=== PATIENT | female | born 1950 | race African-American/Black ===

== ENCOUNTER 2017-07-09 09:35 | Inpatient (IN) | payer BC ==
[~2017-07-09 09:35] MED LIST: ASPIRIN81 MG PO; IPRAT-ALBUT 0.5-3 ML UPD; LEVAQUIN500 MG PO; NORVASC5 MG PO; PLAVIX75 MG PO; STERAPRED DS 1210 MG PO; SYMBICORT 16010.2 GM INH
[2017-07-09 10:01] LABS: BASOPHILS 0.8 % (0-2); EOSINOPHILS 2.1 % (0-7); HEMATOCRIT 40.1 % (36.0-48.0); HEMOGLOBIN 14.5 g/dL (12-16); IMMATURE GRANULOCYTES 0.3 % (0-5); LYMPHOCYTES 40.4 % (15-50); MCH 31.3 pg (26.0-34.0); MCHC 36.2 g/dL (31.0-37.0); MCV 86.4 fL (80.0-100.0); MEAN PLATELET VOLUME 9.4 fL (7.4-10.4); MONOCYTES 6.4 % (2-11); PLATELET COUNT 275 10x3/uL (130-400); RBC 4.64 10x6/uL (4.00-5.40); RDW 13.3 % (11.5-14.5); WBC 6.3 10x3/uL (4.8-10.8)
[2017-07-09 10:15] LABS: ALBUMIN 3.3 g/dL (3.4-5.0); ALKALINE PHOSPHATASE 127 U/L (46-116); ALT (SGPT) 34 U/L (10-68); BILIRUBIN - TOTAL 0.27 mg/dL (0.2-1.3); CALC OSMOLALITY 285 mosm/kg (275-300); CALCIUM 8.6 mg/dL (8.5-10.1); CARBON DIOXIDE 21.8 mmol/L (21.0-32.0); CHLORIDE - SERUM 109 mmol/L (98-107); CREATININE - SERUM 0.7 mg/dL (0.6-1.3); GLUCOSE 103 mg/dL (74-106); POTASSIUM - SERUM 3.4 mmol/L (3.5-5.1); PROTEIN - SERUM 7.2 g/dL (6.4-8.2); SODIUM 144 mmol/L (136-145); UREA NITROGEN 9 mg/dL (7-18); eGFR NON AFRICAN AMERICAN 89 mL/min (90-120)
[2017-07-09 10:26] LABS: CHOL - HDL RATIO 5.5 ratio (2.3-4.1); CHOLESTEROL, TOTAL 262 mg/dL (0-200); CKMB 2.1 U/L (0.0-3.6); CREATINE KINASE 99 UL (21-215); HDL CHOLESTEROL 48 mg/dL (32-96); TRIGLYCERIDE 428 mg/dL (30-200); TROPONIN-I 0.033 ng/mL (0.000-0.060)
[2017-07-09 11:22] LABS: APPEARANCE CLEAR (CLEAR); BILIRUBIN NEGATIVE (NEGATIVE); COLOR YELLOW (YELLOW); GLUCOSE NEGATIVE (NEGATIVE); KETONE NEGATIVE (NEGATIVE); NITRITE NEGATIVE (NEGATIVE); PROTEIN TRACE mg/dL (NEGATIVE); SPECIFIC GRAVITY 1.025 (1.005-1.020); UROBILINOGEN NORMAL (NORMAL)
[2017-07-09 11:25] LABS: EPITHELIAL CELLS 0-5 /hpf (0-5)
[2017-07-09 11:26] LABS: BACTERIA FEW /hpf (NONE SEEN); MUCUS >1+ /lpf (NONE SEEN); RED CELLS - URINE 0-5 /hpf (0-5)
[2017-07-09] MEDS ORDERED: NITROSTAT0.4 MG SL (12:18)
[2017-07-09 12:24] VITALS: BP 159/80
--- NOTE | 2017-07-09 12:29 | NUR ---
RECIEVED FROM ER. ALERT AND ORIENTED. TELEMERTY SHOWS SR 80. SL TO LEFT HAND. DENIES ANY NEEDS AT PRESENT TIME. SR UP WITH CALL LIGHT IN REACH. WILL MONITOR
[2017-07-09 12:32] VITALS: BP 159/80; BMI 24.6
[2017-07-09 14:32] LABS: CKMB 2.3 U/L (0.0-3.6); CREATINE KINASE 90 UL (21-215); TROPONIN-I 0.022 ng/mL (0.000-0.060)
--- NOTE | 2017-07-09 15:46 | NUR ---
LYING QUIETLY. DENIES ANY NEEDS. TELEMERTY SHOWS SR. WILL MONITOR
[2017-07-09 16:00] VITALS: BP 153/77
--- NOTE | 2017-07-09 17:27 | HP ---
PATIENT: MAI BALL MEDICAL RECORD: [id number] ACCOUNT: [id number] LOCATION:[address] : 52 ADMISSION DATE: 07/09/17 HISTORY AND PHYSICAL EXAMINATION REASON FOR ADMISSION: Chest pain and right flank pain. HISTORY OF PRESENT ILLNESS: The patient is a 66-year-old -[place] female with history of COPD, continues to smoke. She is followed by Dr. Concepcion for heart disease and Dr. García for COPD. She does not have a primary physician currently. She states that she has been feeling well recently, developed onset of some sharp fleeting anterior chest wall pain last night. It started about 9:00 and would come and go, lasted about 5 minutes and resolved throughout the night. She did note onset of some flank pain in the right side yesterday as well. In fact, the flank pain is worse than her chest pain. Describes it as 5/10 and sometimes 10/10 that comes and goes. She has not had any associated skin rash in that area, back injury, dysuria, hesitancy or hematuria. She has no prior history of kidney disease or lumbago. She came to the ER for these reasons and Dr. Flowers has admitted her to our service for medicine unassigned call and has talked to Dr. Kang who is certified rehabilitation counselor for Dr. Concepcion to assess for chest pain. She has had no recent exertional chest pain, increased dyspnea on exertion, or marked fatigue. PAST HISTORY: COPD, pneumonia. She has a history of remote MO. Coronary artery disease post PTCA of the RCA on 04/29/2016, nicotine use, essential hypertension, currently not treated. SURGICAL HISTORY: Tonsillectomy as a child. SOCIAL HISTORY: A half pack a day smoker currently, but has smoked for over 30 years. Ethanol occasional beer, does not have a problem with alcohol or use any illicit drugs. Socially, she works at [employer]. She is , has 2 children who are adult and not living with her. FAMILY HISTORY: Parents of old date. One brother of lung cancer. CURRENT MEDICATIONS: Some type of inhaler, she cannot name. REVIEW OF SYSTEMS: GENERAL: Denies fever, fatigue or weight loss. HEENT: No recent visual changes, but wears glasses to read. Denies hearing difficulty or sinus congestion. RESPIRATORY: She has mild exertional dyspnea all the time. No recent cough, congestion. Sharp chest pain as mentioned above, not related to position or cough. CARDIAC: No recent exertional chest pain. Other chest pain as mentioned above. GASTROINTESTINAL: No nausea, vomiting, change in stools or blood per rectum. GENITOURINARY: No dysuria or incontinence. GYNECOLOGICAL: No vaginal bleeding. She is 4. MUSCULOSKELETAL: She is having right flank pain now that it comes and goes. She has fairly severe, almost like labor pain. Denies any dysuria, hematuria, or history of stones. Denies lumbago, sciatica. ENDOCRINE: Denies polyuria, polydipsia, heat or cold intolerance. NEUROLOGIC: No history of stroke, TIA, or vascular headaches. INTEGUMENT: No rash or itching. HISTORY AND PHYSICAL [id number] MAI BALL PSYCHIATRIC: Denies depressed mood. PHYSICAL EXAMINATION: VITAL SIGNS: Height is 5 feet 1 inch, weight is 130 pounds with BMI of 24.6. Blood pressure is 198/96 initially, temperature is 97.8 Fahrenheit orally, pulse 102 and regular, respirations are 22, saturation was 97% on room air. GENERAL: In no acute distress. The pain is involved in her chest, not her flank. HEENT: Eyes are clear, wearing glasses. Oropharynx unremarkable. NECK: No bruits or masses. CHEST: Distant breath sounds without wheeze or rales. HEART: Regular rate and rhythm without murmur. CAROTIDS: No bruits noted. ABDOMEN: Soft, nontender. Her right flank is mildly tender to deep palpation over the right CVA. No rashes noted. BACK: Shows good range of motion without sciatica or limited range of motion. SLR is negative bilaterally. Gait is normal. NEUROLOGICAL: Oriented to person, place, and time. Cranial nerves intact. Gait is normal. LABORATORY DATA: Lab shows white count of 6300 with H&H of 14.5 and 40.1. Potassium was low at 3.4, anion gap of 16, BUN and creatinine are normal. Nonfasting blood sugar is 155. Magnesium is normal at 1.9. Liver functions are normal except for alkaline phosphatase of 127. ProBNP is 323. Triglycerides are high at 428, cholesterols 262. EKG shows evidence of remote MO, no acute changes. Her last CT of chest in 2014 showed atherosclerotic changes with heavy calcification in the coronary vasculature. Chest x-ray today shows cardiomegaly with prominence of central pulmonary vasculature, but no infiltrates. ASSESSMENT: 1. Atypical chest pain in a patient with known coronary artery disease. 2. Uncontrolled hypertension, noncompliant. 3. Chronic obstructive pulmonary disease with current nicotine abuse. 4. Hypokalemia. 5. Flank pain, etiology unknown. PLAN: The patient will be admitted to the medical floor for telemetry, cardiology consult. Once cardiac status is more clear, may proceed with renal stone CT protocol. She has trace pyuria and hematuria. We will strain her urine at this time. TRANSINT:[id number] Voice Confirmation ID: [id number] DOCUMENT ID: [id number] LINDSEY SNIDER MD at 1727 CC: [id number] DICTATION DATE: 07/09/17 1144 QUARRYMAN: 07/09/17 1325 ADM IN [place] [id number] [place] [address]
[2017-07-09 19:33] VITALS: BP 151/71
[2017-07-09 20:41] LABS: CKMB 2.3 U/L (0.0-3.6); CREATINE KINASE 85 UL (21-215); TROPONIN-I 0.026 ng/mL (0.000-0.060)
--- NOTE | 2017-07-09 21:24 | NUR ---
INIITAL ROUNDS COMPLETED AT 1920 HRS. PT STATED PAIN LEVEL 6/10 AT THAT TIME. EKG DONE AT 2000 HRS. ASSESSMENT COMPLETED AT THAT TIME. IV TO L HAND SL. LUNGS DIMINISHED IN BASES BILAT. SR PER CM HR 82. ROGERS. STATES PAIN TO LOWER R BACK AND ABD. MORPHINE 5MG SIVP GIVEN FOR C/O PAIN. PT CURRENTLY STATES PAIN 4/10. WILL CONTINUE TO MONITOR. SR UP X2, CALL LIGHT WITHIN REACH.
[2017-07-09 23:27] VITALS: BP 179/81
--- NOTE | 2017-07-10 00:23 | NUR ---
PT AWAKE; STATES PAIN IS ABOUT A 3/10. DECLINES BERTRAND FOR PAIN MEDS. WILL CONTINUE TO MONITOR.
--- NOTE | 2017-07-10 01:22 | NUR ---
PT RESTING WITH EYES CLOSED. RESP EVEN AND REGULAR. SR UP X2, CALL LIGHT WITHIN REACH.
--- NOTE | 2017-07-10 04:55 | NUR ---
PT HAD C/O R FLANK AND BACK PAIN. MORPHINE 5MG SIVP GIVEN. PT NOW STATES PAIN IS 6/10. SR PER CM. WILL CONTINUE TO MONITOR.
[2017-07-10 05:00] VITALS: BP 171/67
--- NOTE | 2017-07-10 06:31 | NUR ---
SR PER CM DURING SHIFT. PT DENIED ANY CP BUT HAD C/O LOWER R FLANK AND ABD PAIN. PT STATED MORPHINE CONTROLLED PAIN BETTER THAN NORCO. NEED MET; WILL CONTINUE TO MONITOR.
[2017-07-10 06:36] LABS: BASOPHILS 0.3 % (0-2); EOSINOPHILS 1.8 % (0-7); HEMATOCRIT 37.6 % (36.0-48.0); HEMOGLOBIN 13.4 g/dL (12-16); IMMATURE GRANULOCYTES 0.2 % (0-5); LYMPHOCYTES 39.5 % (15-50); MCHC 35.6 g/dL (31.0-37.0); MONOCYTES 7.1 % (2-11); NEUTROPHILS 51.1 % (40-80); PLATELET COUNT 278 10x3/uL (130-400); RBC 4.32 10x6/uL (4.00-5.40); RDW 13.4 % (11.5-14.5)
[2017-07-10 07:01] LABS: CALC OSMOLALITY 279 mosm/kg (275-300); CALCIUM 8.7 mg/dL (8.5-10.1); CARBON DIOXIDE 24.6 mmol/L (21.0-32.0); CHLORIDE - SERUM 106 mmol/L (98-107); GLUCOSE 91 mg/dL (74-106); POTASSIUM - SERUM 3.9 mmol/L (3.5-5.1); SODIUM 141 mmol/L (136-145); UREA NITROGEN 11 mg/dL (7-18)
[2017-07-10 07:02] LABS: CREATININE - SERUM 0.5 mg/dL (0.6-1.3); eGFR NON AFRICAN AMERICAN > 90 mL/min (90-120)
--- NOTE | 2017-07-10 07:56 | NUR ---
ASSESSMENT COMPLETED. C/O SOME RIGHT LOWER BACK PAIN. TELEMETRY SHOWS SR. LUNGS CLEAR. SL TO LEFT FOREARM. WILL MONITOR.
[2017-07-10 08:00] VITALS: BP 173/79
--- NOTE | 2017-07-10 10:43 | NUR ---
ROUNDING DONE, PATIENT IS UP IN ROOM. PATIENT TO COMPLAIN SLIGHTLY OF RIGHT SIDED BACK PAIN, CT OF PELVIS HAS BEEN ORDERED. ON HEART MONITOR SHOWING SR, HR 75. WILL CONTINUE TO MONITOR.
[2017-07-10 12:00] VITALS: BP 163/84
--- NOTE | 2017-07-10 12:58 | NUR ---
PT LAYING QUIETLY. AWAITING ST SCAN. NO NEEDS VOICED. TELEMERTY SHOWS SR
[2017-07-10 16:00] VITALS: BP 150/84
--- NOTE | 2017-07-10 16:05 | NUR ---
GOING TO CT FOR CT OF PELVIS PER WHEELCHAIR
[2017-07-10 20:49] VITALS: BP 163/63
--- NOTE | 2017-07-10 22:09 | NUR ---
INITIAL ROUNDS COMPLETED AT 1915 HRS. PT WITH FAMILY AT BEDSIDE. NO DISTRESS NOTED. ASSESSMENT COMPLETED AT 194 HRS. SR PER CM HR 98. VSS. IV TO L HAND SL. LUNGS CTA. PT HAD C/O R FLANK AND ABD PAIN AT 2099 HRS. MORPHINE 5MG SIVP GIVEN AT 2121 HRS. PT CURRENTLY RESTING WITH EYES CLOSED. RESP EVEN AND REGULAR. SR UP X2, CALL LIGHT WITHIN REACH.
--- NOTE | 2017-07-11 00:41 | NUR ---
PT RESTING WITH EYES CLOSED. RESP EVEN AND REGULAR. SR UP X2, CALL LIGHT WITHIN REACH.
[2017-07-11 01:18] VITALS: BP 183/82
--- NOTE | 2017-07-11 02:16 | NUR ---
PT RESTING WITH EYES CLOSED. RESP EVEN AND REGULAR. SR UP X2, CALL LIGHT WITHIN REACH.
--- NOTE | 2017-07-11 04:46 | NUR ---
MORPHINE 5MG SIVP GIVEN FOR C/O R FLANK AND ABD PAIN. WILL CONTINUE TO MONITOR.
[2017-07-11 05:25] VITALS: BP 175/84
--- NOTE | 2017-07-11 05:51 | NUR ---
VSS THROUGHOUT NIGHT. SR PER CM. PT STATED IV MORPHINE HELPED R FLANK PAIN. NEEDS MET; WILL CONTINUE TO MONITOR.
[2017-07-11 08:39] VITALS: BP 159/77
--- NOTE | 2017-07-11 09:26 | NUR ---
TELEMETRY SR. CALL LIGHT IN REACH. WILL CONT. PLAN OF CARE.
[2017-07-11 13:00] VITALS: BMI 26.0
[2017-07-11 13:37] VITALS: BP 178/90
[2017-07-11 16:04] VITALS: BP 174/78
--- NOTE | 2017-07-11 20:00 | NUR ---
PT RESTING IN BED. FAMILY X 3 IN ROOM. PT ALERT/ORIENTED. SR PER TELEMETRY. NONLABORED RESPIRATIONS ON ROOM AIR. C/O RIGHT SIDE PAIN. MEDICATED WITH MORPHINE 5MG SIVP. SEE SHIFT ASSESSMENT. CPOC.
[2017-07-11 20:59] VITALS: BP 178/80
[2017-07-12 00:30] VITALS: BP 148/64
--- NOTE | 2017-07-12 04:44 | NUR ---
PT RECIEVED MORPHINE 5MG SIVP EARLIER FOR PAIN TO RIGHT SIDE/FLANK. SHE IS NOW RESTING MORE COMFORTABLY. CPOC.
[2017-07-12 06:03] VITALS: BP 153/70
[2017-07-12] MEDS ORDERED: NORVASC5 MG PO (07:07)
[2017-07-12 08:07] VITALS: BP 144/70
[2017-07-12] MEDS ORDERED: MEDROL DOSE PACK4 MG PO (10:32)
--- NOTE | 2017-07-12 10:36 | NUR ---
Patient Name: MAI BALL Admission Status: ER Accout number: [id number] Admission Date: 07-10-2017 : 1950 Admission Diagnosis: Attending: LINDSEY SNIDER Current LOS: 2 Anticipated DC Date: 07-12-2017 Planned Disposition: Home Primary Insurance: [employer] O Discharge Planning Comments: * Is the patient Alert and Oriented? Yes 0 * How many steps to enter\exit or inside your home? 2 0 * [facility] SEEING [facility], SHE IS NOT GONE 0 * Pharmacy [facility] AT [facility] 0 * Preadmission Environment Home Alone 0 * ADLs Independent 0 * Equipment None 0 * Other Equipment NO MEDICAL EQUIPMENT PROVIDER PREFERENCE 0 * List name and contact numbers for known caregivers / representatives who currently or will assist patient after discharge: CHRISTIAN ARTEAGA, SISTER, 0 * Community resources currently utilized None 0 * Please name any agencies selected above. NONE 0 * Additional services required to return to the preadmission environment? No 0 * Can the patient safely return to the preadmission environment? Yes 0 * Has this patient been hospitalized within the prior 30 days at any hospital? No 0 CM MET WITH PT IN ROOM TO DISCUSS DISCHARGE PLANNING AND NEEDS. PT REPORTS LIVING AT HOME INDEPENDENTLY AND ALONE. PT HAS NO MEDICAL EQUIPMENT AND NO OUTSIDE SERVICES ASSISTING IN THE HOME. CM DISCUSSED AVAILABILITY OF HOME HEALTH, REHAB SERVICES AND MEDICAL EQUIPMENT. PT DENIES DISCHARGE NEEDS, REPORTS FAMILY WILL PICK HER UP FOR DISCHARGE HOME. Mail Service Coordinator: Hunter Lynch
--- NOTE | 2017-07-12 11:04 | NUR ---
DISCHARGE INSTRUCTIONS REVIEWED WITH PT. VERBAL AND WRITTEN ACKNOWLEDGEMENT RETURNED
--- NOTE | 2017-07-12 11:05 | NUR ---
IV AND TELEMETRY DCD. DC PLANS GIVEN BY RON WRIGHT. ESCORTED TO CAR BY W/C.
== END 2017-07-12 11:06 | disposition home or self-care (01) | DRG 760 ==
LOC: D.ER 09:35 → D.M2 11:35 → OBSVTIME 11:35 → D.M2 07-10 17:18
PROVIDERS: Emergency Medicine; ADMIT Family Medicine
DX: D25.9 Leiomyoma of uterus, unspecified (principal); J44.1 Chronic obstructive pulmonary disease with (acute) exacerbation; R07.89 Other chest pain; M54.30 Sciatica, unspecified side; I10 Essential (primary) hypertension; I25.10 Atherosclerotic heart disease of native coronary artery without angina pectoris; E87.6 Hypokalemia; M47.896 Other spondylosis, lumbar region; Z95.5 Presence of coronary angioplasty implant and graft; Z72.0 Tobacco use

== ENCOUNTER 2019-01-14 19:11 | Observation (INO) | payer BC ==
[2019-01-14] VITALS (7 sets, daily range): BP systolic 147–196; BP diastolic 68–91
--- NOTE | ~2019-01-14 | HEMODYNAMI ---
PATIENT:MAI BALL MEDICAL RECORD: [id number] : 54 [facility] ADMISSION DATE: 01/14/19 Generatedon:01/15/201915:40 Patient name: MAI BALL Patient #: [id number] SSN: D OB: 1950 Date of study: 01/15/2019 Page: Of Hemodynamic Procedure Report Patient Data Patient Demographics Procedure consent was obtained First Name: MAI Gender: Female Last Name: QUINN : 1950 Middle Initial: A Age: 68 year(s) Patient #: [id number] Race: Black Additional ID: [id number] Contact details Address: [address] [place] [address] State: [place]: [facility] [place] Zip code: [address] Past Medical History Allergies: No known allergies Admission Admission Data Admission Date: 01/14/2019 Admission Time: 23:26 Room #: D.2119 Height (in.): 60.98 BSA: 1.61 (m2) Height (cm.): 154.9 BMI: 25.84 (kg/m2) Weight (lbs.): 136.69 Weight (kg.): 62 Lab Results Lab Result Date: 01/15/2019 Lab Result Time: 0:00 Biochemistry Name Units Result Min Max BUN mg/dl 14 --(--*-)-- 7 18 Creatinine mg/dl 0.5 -*(----)-- 0.6 1.3 CBC Name Units Result Min Max Hematocrit % 34.2 *-(----)-- 42 54 Hemoglobin g/dl 12.2 *-(----)-- 13.5 17.5 Procedure Procedure Types Cath Procedure Diagnostic Procedure [facility] w/Coronaries Sedation Charges Moderate Sedation up to 30 minutes PCI Procedure Coronary Stent Coronary Stent Initial Procedure Description Procedure Date Procedure Date: 01/15/2019 Procedure Start Time: 15:06 Procedure End Time: 15:35 Procedure Staff Name Function Ancelmo Kang MD Performing Physician Gauri Ernst RT Monitor Elo Elmore RN Nurse Steve Flower RT Scrub Ricki Bernstein RT Monitor Procedure Data Cath Procedure Fluoroscopy Diagnostic fluoroscopy Total fluoroscopy Time: 6.1 time: 6.1 min min Diagnostic fluoroscopy Total fluoroscopy dose: 718 dose: 718 mGy mGy Contrast Material Contrast Material Type Amount (ml) Isovue 300 126 Entry Location Entry Primary Successful Side Size Upsize Upsize Entry Closure Succes sful Closure Location (Fr) 1 (Fr) 2 (Fr) Remarks Device Remarks Femoral Right 5 Fr 6 Fr Exoseal artery Short Estimated blood loss: 10 ml Diagnostic catheters Device Type Used For End Catheter Placement MULTIPACK JL 4.0 5Fr Procedure catheter MULTIPACK 3DRC 5Fr Procedure catheter MULTIPACK Pigtail 5 Fr Procedure catheter Procedure Complications No complications Procedure Medications Medication Administration Route Dosage Oxygen etCO2 Nasal cannula 2 l/min Heparin Flush Bag added to field 2 bags (1000units/500ml NS) 0.9% NaCl I.V. 100 ml/hr Lidocaine 2% added to field 20 Fentanyl I.V. 50 mcg Versed I.V. 1 mg Versed I.V. 1 mg Fentanyl I.V. 50 mcg Heparin Bolus I.V. 6500 units Plavix P.O. 600 mg Hemodynamics Rest BSA: 1.61 (m2) HGB: 12.2 (g/dl) O2 Consumption: Estimated: 160.36 (ml/min) O2 Co nsumption indexed: Estimated:99.6 (ml/min/m) Heart Rate: 87 (bpm) Pressure Samples Time Site Value (mmHg) Purpose Heart Use Rate(bpm) 15:13 LV 134/2,14 Snapshot 88 15:13 LV 177/17,29 Snapshot 91 Gradients Valve Time Site Site Mean SEP/DFP Peak To Heart Use 1 2 (mmHg) (sec/min) Peak Rate (mmHg) (bpm) Aortic 15:13 LV AO 87 Snapshots Pre Cath Intra NCS Post Cath Vital Signs Time Heart Resp SPO2 etCO2 NIBP (mmHg) Rhythm Pain Sedation Rate (ipm) (%) (mmHg) Status Level (bpm) 14:54:08 89 17 98 26.9 173/90(126) NSR 0 (11) 10(A) , No pain 14:58:28 92 16 97 29.1 169/84(119) NSR 0 (11) 10(A) , No pain 15:02:48 92 15 98 26.1 147/91(112) NSR 0 (11) 10(A) , No pain 15:07:02 93 12 96 22.4 153/88(107) NSR 0 (11) 9(A) , No pain 15:11:12 89 12 97 21.6 148/88(132) NSR 0 (11) 9(A) , No pain 15:15:24 91 13 97 23.9 156/88(139) NSR 0 (11) 9(A) , No pain 15:19:44 85 17 98 28.4 148/84(109) NSR 0 (11) 9(A) , No pain 15:23:56 91 13 98 15 151/93(132) NSR 0 (11) 9(A) , No pain 15:28:10 93 14 97 9.7 162/88(137) NSR 0 (11) 9(A) , No pain 15:32:28 91 15 98 28.4 171/92(137) NSR 0 (11) 10(A) , No pain Medications Time Medication Route Dose Verified Delivered Reason Notes Effectiveness by by 14:46:39 Oxygen etCO2 2 Ancelmo Elo Per physician Nasal l/min Jorge Luis Elmore cannula RN 14:51:35 Heparin Flush added 2 Ancelmo Elo used for Bag to bags Jorge Luis Elmore procedure (1000units/500ml field RN NS) 14:51:43 0.9% NaCl I.V. 100 Ancelmo Elo Per physician ml/hr Jorge Luis Elmore RN 14:51:52 Lidocaine 2% added 20ml Ancelmo Elo used for to vial Jorge Luis Elmore procedure field RN 14:58:31 Fentanyl I.V. 50 Ancelmo Elo for sedation mcg Jorge Luis Elmore RN 14:58:44 Versed I.V. 1 mg Ancelmo Elo for sedation Jorge Luis Elmore RN 15:04:32 Versed I.V. 1 mg Ancelmo Elo for sedation Jorge Luis Elmore RN 15:04:35 Fentanyl I.V. 50 Ancelmo Elo for sedation mcg Jorge Luis Elmore RN 15:18:01 Heparin Bolus I.V. 6500 Ancelmo Elo for verif ied units Jorge Luis Elmore anticoagulation with Dr. KYLE Kang 15:18:20 Plavix P.O. 600 Ancelmo Elo for mg Jorge Luis Elmore antiplatelet RN therapy Procedure Log Time Note 14:30:46 Signed procedure consent form obtained from patient. 14:30:48 Diagnostic Cath status Urgent 14:30:49 Time tracking: Regular hours (M-F 7:00 - 5:00) 14:30:52 Plan of Care:Hemodynamics will remain stable., Cardiac rhythm will remain stable., Comfort level will be maintained., Respiratory function will remain adequate., Patient/ family verbilizes understanding of procedure., Procedure tolerated without complication., Recovers from procedure without complications.. 14:33:00 Elo Elmore RN sent for patient. Start room use. 14:35:36 Patient Weight : 136.69 lbs 14:35:47 Patient Height : 60.98 inches 14:35:59 Patient allergic to No known allergies 14:36:26 Lab Result : Creatinine 0.5 mg/dl 14:36:26 Lab Result : BUN 14 mg/dl 14:36:26 Lab Result : Hematocrit 34.2 % 14:36:26 Lab Result : Hemoglobin 12.2 g/dl 14:40:14 Patient received from Med II to CCL 1 Alert and oriented. Tansferred to table in Supine position. 14:40:15 Warm blankets applied, and tanvi hugger turned on for patient comfort. 14:40:15 Correct patient and procedure confirmed by team. 14:40:16 ECG and BP/O2 sat monitors applied to patient. 14:46:39 Oxygen 2 l/min etCO2 Nasal cannula was administered by Elo Elmore RN; Per physician; 14:51:17 Vital chart was started 14:51:23 Baseline sample Acquired. 14:51:28 Rhythm: sinus rhythm 14:51:29 Full Disclosure recording started 14:51:35 Heparin Flush Bag (1000units/500ml NS) 2 bags added to field was administered by Elo Elmore RN; used for procedure; 14:51:43 0.9% NaCl 100 ml/hr I.V. was administered by Elo Elmore RN; Per physician; 14:51:52 Lidocaine 2% 20ml vial added to field was administered by Elo Elmore RN; used for procedure; 14:54:22 H&P Date Dictated: 01/15/2019 Within 30 days and on chart.. 14:54:23 Pre-procedure instructions explained to patient. 14:54:24 Pre-op teaching completed and patient verbalized understanding. 14:54:26 Family in patients room. 14:54:27 Patient NPO since Midnight. 14:54:28 Is the patient allergic to Iodine/contrast media? No. 14:54:31 Is patient on blood thinner?No 14:54:33 Patient diabetic? No. 14:54:35 Previous problem with sedation/anesthesia? No ? 14:54:36 Snore? No 14:54:37 Sleep apnea? No 14:54:39 Deviated septum? No 14:54:39 Opens mouth fully? Yes 14:54:40 Sticks out tongue? Yes 14:54:42 Airway obstruction? No ? 14:54:44 Dentures? No ? 14:54:46 Pre procedure: right dorsailis pedis pulse 1+ Palpable, but thready & weak; easily obliterated 14:54:53 Patient pain scale 0/10 ?. 14:54:57 IV patent on arrival in left forearm with 0.9% NaCl at [facility]. 14:55:01 Lab results completed and on chart. 14:55:04 Right groin area was prepped with chlora-prep and draped in sterile fashion 14:55:05 Alarms reviewed by R. N. 14:55:06 Sharps counted by scrub and verified by R.N. 14:56:37 Use device set Femoral Dx 14:56:40 Tegaderm 4 x 4 (1626W) opened to sterile field. 14:56:41 ACIST Manifold (08801) opened to sterile field. 14:56:42 ACIST Hand Control (42496) opened to sterile field. 14:56:44 ACIST Syringe (41896) opened to sterile field. 14:56:44 Bag Decanter (2002S) opened to sterile field. 14:56:44 Medline Cath Pack ([id number]) opened to sterile field. 14:56:45 DIAGNOSTIC WIRE .035 260cm J wire (583244) opened to sterile field. 14:56:46 DIAGNOSTIC Multipack 5Fr catheter set ([id number]) opened to sterile field. 14:56:47 SHEATH 5FR Brandon (GVL601) opened to sterile field. 14:57:05 --------ALL STOP TIME OUT------ 14:57: Final Timeout: patient, procedure, and site verified with staff and physician. All members of the team are in agreement. 14:57: Right groin site verified by team. 14:57:13 Maximum allowable Isovue 370 dose 300ml. Physician notified. (300ml for normal creatinines. For patients with creatinine of 1.7 or higher multiply weight(kg) x 5 divided by creatinine.) 14:57:27 Fire Safety Assessment: A--An alcohol-based skin anteseptic being used preoperatively., C--Open oxygen or nitrous oxide is being used., D--An ESU, laser, or fiber-optic light is being used. 14:57:37 Physical assessment completed. ASA score P 2 - A patient with mild systemic disease as per Ancelmo Kang MD. 14:57:40 Sedation plan: IV Moderate Sedation Medication:Versed, Fentanyl 14:58:31 Fentanyl 50 mcg I.V. was administered by Elo Elmore RN; for sedation; 14:58:44 Versed 1 mg I.V. was administered by Elo Elmore RN; for sedation; 15:04:03 Zero performed for pressure channel P1 15:04:32 Versed 1 mg I.V. was administered by Elo Elmore RN; for sedation; 15:04:35 Fentanyl 50 mcg I.V. was administered by Elo Elmore RN; for sedation; 15:05:43 Zero performed for pressure channel P1 15:05:46 Procedure started. 15:06:09 Local anesthetic to right femoral artery with Lidocaine 2% by Ancelmo Kang MD.INITIAL ACCESS ONLY 15:06:15 Zero performed for pressure channel P1 15:07:15 A 5 Fr sheath was inserted into the Right Femoral artery 15:07:57 A MULTIPACK JL 4.0 5Fr catheter was advanced over the wire and used for Procedure. 15:09:33 LCA angiography performed. 15:09:40 Catheter exchanged over wire. 15:10:24 A MULTIPACK 3DRC 5Fr catheter was advanced over the wire and used for Procedure. 15:11:24 RCA angiography performed. 15:11:27 Catheter exchanged over wire. 15:11:34 A MULTIPACK Pigtail 5 Fr catheter was advanced over the wire and used for Procedure. 15:12:30 LV gram done using MUNROE 15:12:32 Injector settings: Ml/sec: 10, Volume: 20, 15:13:20 LV hemodynamics recorded. 15:13:43 EF : 60 % 15:14:07 SHEATH 6FR Brandon (NZR809) opened to sterile field. 15:14:08 BMW 300cm Straight [place] 2 wire ([id number]) opened to sterile field. 15:14:08 INFLATOR Merit BasixCompak (MO1629) opened to sterile field. 15:14:08 TUBING High Pressure Extension Tubing (Jorge Luis) ([id number]) opened to sterile field. 15:14:46 Sheath upsized to a 6 Fr Short. 15:16:02 GUIDE 6FR JR 4.0 catheter ([id number]) opened to sterile field. 15:16:47 6 Fr JR 4 guide catheter was inserted over the wire 15:18:01 Heparin Bolus 6500 units I.V. was administered by Elo Elmore RN; for anticoagulation; verified with Dr. Kang 15:18:05 BMW 300 wire advanced. 15:18:20 Plavix 600 mg P.O. was administered by Elo Elmore RN; for antiplatelet therapy; 15:18:49 Wire advanced across lesion. 15:21:04 Inflate balloon Inflation number: 1 A EUPHORA 2.0 x 20 Balloon ([id number]) was prepped and advanced across the Mid RCA, then inflated to 15 MAYA for 0:10 (min:sec). 15:22:02 Inflation number: 2 The EUPHORA 2.0 x 20 Balloon ([id number]) was reinflated across the Mid RCA, to 15 MAYA for 0:10 (min:sec). 15:23:47 Inflation number: 3 The EUPHORA 2.0 x 20 Balloon ([id number]) was reinflated across the Mid RCA, to 16 MAYA for 0:10 (min:sec). 15:24:50 Balloon removed over the wire. 15:29:12 Place stent Inflation Number: 1 A COBRA RX 2.5 X 12 Stent was prepped and advanced across the Prox RCA. The stent was deployed at 14 MAYA for 0:10 (min:sec). 15:29:58 Stent catheter was removed intact over wire. 15:30:01 Wire removed. 15:30:12 Guide catheter removed. 15:31:06 EXOSEAL 6Fr (EX600) opened to sterile field. 15:31:38 Sheath removed intact; hemostasis achieved with Exoseal to the Right Femoral artery. 15:31:41 Procedure ended.(Physican Out) 15:33:58 Fluoroscopy time 06.10 minutes. 15:34:02 Flurop Dose total: 718 15:34:02 Fluoroscopy dose: 718 mGy 15:34:06 Contrast amount:Isovue 300 126ml. 15:34:08 Sharps counted by scrub and verified by R.N. 15:34:11 Post-op/insertion site Right Femoral artery dressed using a 4 x 4 and Tegaderm. 15:34:13 Post-procedure physical assessment completed. ASA score P 2 - A patient with mild systemic disease as per Ancelmo Kang MD. 15:34:16 Post procedure rhythm: sinus rhythm 15:34:18 Estimated blood loss: 10 ml 15:34:19 Post procedure instruction explained to patient.Patient verbalizes understanding. 15:34:20 Patient needs reinforcement of post procedure teaching. 15:34:43 Procedure type changed to Cath procedure, Diagnostic procedure, LHC, LHC w/Coronaries, Sedation Charges, Moderate Sedation up to 30 minutes, PCI procedure, Coronary Stent, Coronary Stent Initial 15:35:43 Procedure and supply charges have been captured, reviewed, submitted and are correct. 15:35:46 Procedure Complication : No complications 15:35:47 Vital chart was stopped 15:35:50 See physician's report for complete and final results. 15:35:53 Report given to [facility]. 15:35:56 Patient transfered to [facility] with Bed. 15:35:58 Procedure ended. 15:35:58 Full Disclosure recording stopped 15:36:03 End room use (Document Last) Intervention Summary Intervention Notes Time ActionType Lesion and Equipment Action# Pressure Duration Attributes Used 15:21:04 Inflate Mid RCA EUPHORA 1 15 00:10 balloon 2.0 x 20 Balloon ([id number]) 15:22:02 Reinflate Mid RCA EUPHORA 2 15 00:10 balloon 2.0 x 20 Balloon ([id number]) 15:23:47 Reinflate Mid RCA EUPHORA 3 16 00:10 balloon 2.0 x 20 Balloon ([id number]) 15:29:12 Place stent Prox RCA COBRA RX 1 14 00:10 2.5 X 12 Stent Device Usage Item Name Manufacture Quantity Catalog Hospital Part Current Minimal Lot# / Number Charge Number Stock Stock Serial# Code Tegaderm 4 x 4 3M 1 1626W 636753 770572 165323 5 (1626W) ACIST Manifold Acist 1 55753 679693 930044 994788 5 (22775) Medical Systems Inc ACIST Hand Acist 1 74200 650909 420256 829739 5 Control Medical (32895) Systems Inc ACIST Syringe Acist 1 09449 833194 774491 907819 20 (31050) Medical Systems Wanxue Education Bag Decanter Microtek 1 2001S 958261 47729 899264 5 (2001S) Medical Inc. Medline Cath Medline 1 [id number] 164606 79011 705796 5 Pack ([id number]) DIAGNOSTIC [facility] 1 175952 859341 668946 247007 30 WIRE .035 260cm J wire (068774) DIAGNOSTIC Cardinal 1 WQ1597 926943 76613 609758 30 Multipack 5Fr Health catheter set (HY2792) SHEATH 5FR Terumo 1 ESQ550 398985 717363 683603 5 Brandon (WRI032) MULTIPACK JL Cardinal 1 575952 5 4.0 5Fr Health catheter MULTIPACK 3DRC Cardinal 1 723175 5 5Fr catheter Health MULTIPACK Cardinal 1 987545 5 Pigtail 5 Fr Health catheter SHEATH 6FR Terumo 1 EOP365 870568 821450 023180 40 Brandon (BTP922) BMW 300cm Dominguez 1 3663328 303416 423788 611574 5 Straight Vascular [place] 2 wire (2611218) INFLATOR Merit Merit 1 ZD6965 690854 910816 810632 15 BasixDocurated Medical (TQ8111) TUBING High Merit 1 [id number] 481098 29166 316624 10 Pressure Medical Extension Tubing (Kang) (XT6744L) GUIDE 6FR JR Medtronic 1 [id number] 715574 00839 092436 1 4.0 catheter (BH9ED63) EUPHORA 2.0 x Medtronic 1 [id number] 118193 997112 205449 5 [id number] 20 Balloon ([id number]) COBRA RX 2.5 X Celonova 1 127154 451533531 75334132 8 0 [id number] 12 stent Biosciences () EXOSEAL 6Fr Cardinal 1 EX600 458321 264217 167538 10 (EX600) Health Signature Audit [place] Stage Time Signature Unsigned Intra-Procedure 01/15/2019 Gauri Ernst 3:40:20 PM RT(R) Signatures Monitor : Gauri Ernst Signature : RT Date : Time : Monitor : Ricki Bernstein RT Signature : Date : Time : [place] [id number] [place] [address]
[~2019-01-14 19:11] MED LIST changes: +MEDROL DOSE PACK4 MG PO; +NITROSTAT0.4 MG SL
--- NOTE | 2019-01-14 19:57 | NUR ---
NTG X 3 GIVEN WITH SOME RELIEF IN CHEST PAIN FROM 05/15 TO 04/14. BP IMPROVED SEE VITALS.
[2019-01-14 20:25] LABS: BASOPHILS 0.3 % (0-2); EOSINOPHILS 1.6 % (0-7); HEMATOCRIT 35.7 % (36.0-48.0); IMMATURE GRANULOCYTES 0.2 % (0-5); LYMPHOCYTES 38.1 % (15-50); MCH 31.1 pg (26.0-34.0); MCHC 36.4 g/dL (31.0-37.0); MCV 85.4 fL (80.0-100.0); MEAN PLATELET VOLUME 9.1 fL (7.4-10.4); NEUTROPHILS 53.8 % (40-80); PLATELET COUNT 273 10x3/uL (130-400); RBC 4.18 10x6/uL (4.00-5.40); RDW 13.4 % (11.5-14.5); WBC 9.1 10x3/uL (4.8-10.8)
[2019-01-14 20:36] LABS: APTT 24.7 SECONDS (22.8-39.4); INR 0.98 (0.85-1.17); PROTIME 12.5 SECONDS (11.6-15.0)
[2019-01-14 20:37] LABS: D-DIMER-QUANTITATIVE < 0.27 ug/mLFEU (0.20-0.54)
[2019-01-14 20:47] LABS: ALBUMIN 3.4 g/dL (3.4-5.0); ALKALINE PHOSPHATASE 103 U/L (46-116); ALT (SGPT) 26 U/L (10-68); BILIRUBIN - TOTAL 0.22 mg/dL (0.2-1.3); CALC OSMOLALITY 286 mosm/kg (275-300); CALCIUM 8.6 mg/dL (8.5-10.1); CARBON DIOXIDE 21.6 mmol/L (21.0-32.0); CHLORIDE - SERUM 109 mmol/L (98-107); CREATININE - SERUM 0.6 mg/dL (0.6-1.3); GLUCOSE 131 mg/dL (74-106); POTASSIUM - SERUM 3.3 mmol/L (3.5-5.1); SODIUM 142 mmol/L (136-145); UREA NITROGEN 17 mg/dL (7-18); eGFR NON AFRICAN AMERICAN > 90 mL/min (90-120)
[2019-01-14 20:52] LABS: CKMB 2.5 U/L (0.0-3.6); CREATINE KINASE 96 UL (21-215); MAGNESIUM - SERUM 2.1 mg/dL (1.8-2.4); TROPONIN-I 0.019 ng/mL (0.000-0.060)
--- NOTE | 2019-01-15 00:45 | NUR ---
KENTON LEGGETTY TO PATIENT.
--- NOTE | 2019-01-15 01:29 | NUR ---
RECEIVED VIA WHEELCHAIR FROM ER, A&OX4, HISTORY AND MEDS COMPLETE, IV-20G. LFA, BED IS LOW, SRX2, CALL LIGHT IN REACH, WILL CONTINUE PLAN OF CARE
--- NOTE | 2019-01-15 02:04 | NUR ---
ADMISSION ASSESSMENT COMPLETED. PT RESTING IN BED WITH NO C/O. ALERT/ORIENTED. PIV SALINE LOCKED TO LFA. PLAN OF CARE INITIATED.
[2019-01-15 02:18] VITALS: BMI 25.0
[2019-01-15 04:23] VITALS: BP 184/75
[2019-01-15 05:04] LABS: BASOPHILS 0.3 % (0-2); EOSINOPHILS 1.9 % (0-7); HEMATOCRIT 34.2 % (36.0-48.0); HEMOGLOBIN 12.2 g/dL (12-16); IMMATURE GRANULOCYTES 0.2 % (0-5); LYMPHOCYTES 36.8 % (15-50); MCH 30.6 pg (26.0-34.0); MCHC 35.7 g/dL (31.0-37.0); MCV 85.7 fL (80.0-100.0); MEAN PLATELET VOLUME 9.8 fL (7.4-10.4); MONOCYTES 8.6 % (2-11); NEUTROPHILS 52.2 % (40-80); PLATELET COUNT 273 10x3/uL (130-400); RBC 3.99 10x6/uL (4.00-5.40); RDW 13.3 % (11.5-14.5); WBC 8.6 10x3/uL (4.8-10.8)
[2019-01-15 05:39] LABS: CALC OSMOLALITY 278 mosm/kg (275-300); CALCIUM 8.7 mg/dL (8.5-10.1); CARBON DIOXIDE 23.8 mmol/L (21.0-32.0); CHLORIDE - SERUM 107 mmol/L (98-107); CKMB 2.5 U/L (0.0-3.6); CREATINE KINASE 86 UL (21-215); CREATININE - SERUM 0.5 mg/dL (0.6-1.3); GLUCOSE 97 mg/dL (74-106); POTASSIUM - SERUM 3.7 mmol/L (3.5-5.1); SODIUM 139 mmol/L (136-145); TROPONIN-I 0.034 ng/mL (0.000-0.060); UREA NITROGEN 14 mg/dL (7-18); eGFR NON AFRICAN AMERICAN > 90 mL/min (90-120)
--- NOTE | 2019-01-15 07:15 | NUR ---
ASSESSMENT COMPLETED. ALERT AND ORIENTED. UP FOR BATH. DENIES ANY NEEDS. TELEMERTY SHOWS SR. LEFT FA SL. NPO AFTER BREAKFAST FOR CATH. WILL MONITOR SR UP WITH CALL LIGHT IN REACH
[2019-01-15 08:08] VITALS: BP 158/77
[2019-01-15 11:57] VITALS: BP 162/79
--- NOTE | 2019-01-15 12:42 | NUR ---
I have reviewed this patient and I concur with the Shift Assessment completed by the Licensed Practical Nurse today this shift.
--- NOTE | 2019-01-15 15:50 | NUR ---
BACKKevin FROM LABOR DELIVERY RN. RRRRRRIGHT GROIN SOFT WITH DRSG DRY AND INTACT, PPP, TRYING TO SET UP. INSTRUCTIONS GIVEN TO PATIENT ABOUT STAYING FLAT. STATES SHE KNOWS WHAT SHE CAN DO. TUMS GIVEN FOR HEART BURN. STATES BURING RELIEVED.
--- NOTE | 2019-01-15 17:25 | NUR ---
REFUSES TO LAY STILL. WANTS UP TO EAT. I OFERED TO FEED HER AND SHE REFUSED. RIGHT GROIN SOFT WITH DRSG DRY AND INTACT. WILL MONITOR
--- NOTE | 2019-01-15 18:07 | NUR ---
PT GOT UP AND HAD IV UNHOOKED AND BLEEDING RIGHT GROIN DRSG DRY AND INTACT. PUT PT BACK TO BED AND TALKED TO HER ABOUT STAYING IN BED AND NOT SITTING UP.
--- NOTE | 2019-01-15 19:25 | NUR ---
ASSESSMENT COMPLETE. PT A&O. RESPERATIONS EVEN ON RA. IV TO LEFT ARM SL, SITE CLEAN AND DRY. DRSG TO RIGHT GROIN C/D/I. NO SWELLING, BLEEDING OR HEMATOMA NOTED. RIGHT LEG WARM TO TOUCH, PEDAL PULSES PRESENT. PT DENIES PAIN OR NEEDS, BED LOW, CL IN REACH.
--- NOTE | 2019-01-15 20:56 | NUR ---
HS MEDS GIVEN WITH FRESH ICE WATER. PT DENIES PAIN OR NEEDS.
[2019-01-15 21:25] VITALS: BP 160/66
[2019-01-16 01:56] VITALS: BP 160/71
--- NOTE | 2019-01-16 05:03 | NUR ---
I have reviewed this patient and I concur with the Shift Assessment completed by the Licensed Practical Nurse today this shift.
[2019-01-16 06:22] LABS: BASOPHILS 0.4 % (0-2); EOSINOPHILS 2.9 % (0-7); HEMATOCRIT 35.2 % (36.0-48.0); HEMOGLOBIN 12.7 g/dL (12-16); IMMATURE GRANULOCYTES 0.3 % (0-5); LYMPHOCYTES 32.3 % (15-50); MCH 30.8 pg (26.0-34.0); MCHC 36.1 g/dL (31.0-37.0); MCV 85.2 fL (80.0-100.0); MEAN PLATELET VOLUME 9.5 fL (7.4-10.4); MONOCYTES 8.8 % (2-11); NEUTROPHILS 55.3 % (40-80); PLATELET COUNT 261 10x3/uL (130-400); RBC 4.13 10x6/uL (4.00-5.40); RDW 13.4 % (11.5-14.5); WBC 7.2 10x3/uL (4.8-10.8)
[2019-01-16 06:23] VITALS: BP 166/71
[2019-01-16 06:33] LABS: CALC OSMOLALITY 277 mosm/kg (275-300); CALCIUM 8.4 mg/dL (8.5-10.1); CARBON DIOXIDE 22.4 mmol/L (21.0-32.0); CHLORIDE - SERUM 107 mmol/L (98-107); CREATININE - SERUM 0.5 mg/dL (0.6-1.3); GLUCOSE 88 mg/dL (74-106); POTASSIUM - SERUM 3.9 mmol/L (3.5-5.1); SODIUM 140 mmol/L (136-145); UREA NITROGEN 13 mg/dL (7-18); eGFR NON AFRICAN AMERICAN > 90 mL/min (90-120)
--- NOTE | 2019-01-16 07:41 | NUR ---
ASSESSMENT COMPLETED. ALERT AND ORIENTED.TELEMERTY SHOWS ST 101.RIGHT GROIN SOFT WITH DRSG DRY AND INTACT. SR UP WITH CALL LIGHT IN REAC
[2019-01-16 08:00] VITALS: BP 167/76
[2019-01-16] MEDS ORDERED: PLAVIX75 MG PO (10:20)
[2019-01-16] MEDS ORDERED: NORVASC5 MG PO (10:20)
[2019-01-16] MEDS ORDERED: ASPIRIN325 MG PO (10:21)
--- NOTE | 2019-01-16 12:45 | NUR ---
PT DISCHARGED. INSTRUCTIONS GIVEN TO PT. IV DCD WITH TIP INTACT. AWAITIN TRANSPORTATION
--- NOTE | 2019-01-16 13:18 | NUR ---
I have reviewed this patient and I concur with the Shift Assessment completed by the Licensed Practical Nurse today this shift.
--- NOTE | 2019-01-17 09:34 | MORECARE ---
CASE MANAGEMENT DISCHARGE SUMMARY PATIENT: MAI BALL UNIT: [id number] ADM DATE: 01/14/19 AGE: 68 : 52 SEX: F ROOM/BED: D.8650 AUTHOR: TESHA VINES PHYSICIAN: REFERRING PHYSICIAN: RANGEL ORELLANA MD DATE OF SERVICE: 01/17/19 Discharge Plan Patient Name: MAI BALL Facility: [facility]:[place] : 1950 Planned Disposition: Home Anticipated Discharge Date: 01/16/19 Discharge Date: 01/16/2019 Expected LOS: 2 Initial Reviewer: [email or web address] Initial Review Date: 01/17/2019 Generated: 01/17/19 10:34 am Patient Name: MAI BALL Page 37792 at 0934 All edits/amendments must be made on the electronic document DICTATION DATE: 01/17/19933 PEANUT GRADER: RANDOLPH 01/17/19933 RPT#: [id number] DC DATE:01/16/19 STATUS: DIS IN [facility] [address] [place] [address] END OF REPORT
== END 2019-01-16 13:20 | disposition home or self-care (01) ==
LOC: D.ER 19:11 → OBSVTIME 23:26 → D.M2 23:26
PROVIDERS: Family Medicine; ADMIT Internal Medicine Nephrology; ATTEND Internal Medicine Nephrology
DX: I25.110 Atherosclerotic heart disease of native coronary artery with unstable angina pectoris (principal)

== ENCOUNTER → 2019-04-09 13:41 | Outpatient (CLI) | payer BC ==
[~2019-04-09 13:41] MED LIST changes: +ASPIRIN325 MG PO
== END | disposition home or self-care (01) ==
LOC: D.RT 13:41
PROVIDERS: ATTEND Internal Medicine Pulmonary Disease
DX: J44.9 Chronic obstructive pulmonary disease, unspecified (principal)

== ENCOUNTER 2019-08-24 05:00 | Day surgery (SDC) | payer BC ==
[2019-08-23 10:19] LABS: HEMATOCRIT 36.4 % (36.0-48.0); HEMOGLOBIN 12.8 g/dL (12-16); MCH 29.6 pg (26.0-34.0); MCHC 35.2 g/dL (31.0-37.0); MCV 84.1 fL (80.0-100.0); MEAN PLATELET VOLUME 8.7 fL (7.4-10.4); RBC 4.33 10x6/uL (4.00-5.40); RDW 15.1 % (11.5-14.5)
[~2019-08-24] VITALS: Ht 154.9 cm; Wt 57.2 kg
[~2019-08-24 05:00] MED LIST changes: +BREO ELLIPTA 21 EACH; +NITROSTAT0.3 MG SL; +PREDNISONE1 MG PO; +TOPROL XL25 MG PO
[2019-08-24 06:09] VITALS: BP 123/64; Ht 154.9 cm; Wt 57.2 kg
[2019-08-24] MEDS ORDERED: HYDROCODON-ACE1 EAC7 PO (08:09)
[2019-08-24] MEDS ORDERED: DURICEF500 MG PO (08:09)
--- NOTE | 2019-08-30 07:19 | OP ---
PATIENT NAME: MAI BALL MEDICAL RECORD: [id number] :[birth year] LOCATION:[facility] ADMISSION DATE: SURGEON: CHOLO LIVINGSTON DO DATE OF OPERATION: 08/24/2019 PROCEDURE PERFORMED: Right endoscopic carpal tunnel release and right trigger thumb release or A1 alireza release of the thumb. PREOPERATIVE DIAGNOSES: Right carpal tunnel syndrome and trigger thumb of the right hand. POSTOPERATIVE DIAGNOSES: Right carpal tunnel syndrome and trigger thumb of the right hand. INDICATIONS: Ms. Ball is a 68-year-old female who has had her thumb stuck and having to unlock it herself. She was tired of dealing with the pain. She also got a nerve conduction study and is having pain and numbness in the median nerve distribution and she was tired dealing with that, had a nerve conduction study that showed a positive carpal tunnel compression in the median nerve at the wrist. I informed her of the risks include damage to the median nerve, continued numbness, pain should improve, but she may have continued numbness as well as damage to nerves, around the thumb due to the close proximity to the A1 alireza and the nerve of the thumb infection, bleeding and need for further surgery and she signed the consent. SURGEON: Cholo Livingston DO SECOND BAKER: I was assisted by Lencho Blveins, certified surgical ortho assistant. He assisted with closing and retraction. DESCRIPTION OF PROCEDURE: The patient was taken to the operative suite, given a gram of Ancef, laid in the supine position, given general anesthetic and LMA was placed. The right upper extremity was then prepped and draped in sterile fashion. A timeout was performed, everyone was in agreeance with the correct side, site, patient and procedure. The right upper extremity was then exsanguinated with an Esmarch and tourniquet was inflated to 250 mmHg and it was up for 22 minutes. Incision was then marked out over the wrist crease and centered over the palmaris longus tendon and incision was made through the skin with 15 blade scalpel. Then, blunt dissection was made with Ragnell down to the carpal tunnel and the forearm fascia was . Forearm fascia was then released from distal to proximal under direct visualization and then the dilators were put through in the carpal tunnel and the sheath was brought in and then the camera was brought in. There was a very nice view of the transverse carpal ligament. The probe and rasp were brought in to ensure there was no transligamentous nerve and there was not either one felt or seen. The blade was then brought in and raised up and transected through the transverse carpal ligament. Getting good release, fat herniated down into the carpal tunnel. Then, this was all removed with a pickup and a Ragnell were used as well as scissors to ensure there was complete release of the transverse carpal ligament with direct loupe visualization. Attention was then drawn to the trigger thumb. Incision was made over the A1 alireza and with a 15-blade scalpel just through the skin, blunt dissection was made with a Ragnell down to the A1 alireza. It was then visualized and released and the tendon was seen to be somewhat frayed on the thumb, but this was pulled out through the incision and pulled out very easily and did not click or catch as well as we tested motion with the thumb. OPERATIVE REPORT [id number] MAI BALL The tourniquet was then let down. The sites were injected with 0.25% Marcaine with epinephrine, approximately 4 mL in the thumb and then 6 mL around the carpal tunnel site, it was then closed the thumb with horizontal mattress 5-0 Monocryl and the wrist at the carpal tunnel in an inverted interrupted. Steri-Strips were placed on each. Adaptic, 4 x 4's, Kerlix, and Coban was lightly wrapped on the patient's hand. She was awakened and taken to recovery in stable condition. ESTIMATED BLOOD LOSS: Minimal. COMPLICATIONS: None. TRANSINT:[id number] Voice Confirmation ID: [id number] DOCUMENT ID: [id number] CHOLO LIVINGSTON DO at 0719 CC: [id number] DICTATION DATE: 08/24/19813 [employer] DRILLING MACHINE OPERATOR: 08/24/19 1159 [facility] 08/24/19 [place] [address] [place] [address]
== END 2019-08-24 09:55 | disposition home or self-care (01) ==
LOC: D.OPS 05:00 → D.PAN 07:00 → D.OPS 09:55
PROVIDERS: Anesthesiology; ATTEND Orthopaedic Surgery
DX: G56.01 Carpal tunnel syndrome, right upper limb (principal); M65.311 Trigger thumb, right thumb; J44.9 Chronic obstructive pulmonary disease, unspecified; Z72.0 Tobacco use; I50.9 Heart failure, unspecified; J40 Bronchitis, not specified as acute or chronic; Q67.5 Congenital deformity of spine; I25.10 Atherosclerotic heart disease of native coronary artery without angina pectoris

== ENCOUNTER → 2019-09-24 19:35 | Outpatient (CLI) | payer BC ==
[2019-08-24 06:09] VITALS: BMI 23.8
[~2019-09-24 19:35] MED LIST changes: +DURICEF500 MG PO; +HYDROCODON-ACE1 EAC7 PO; +SMZ-TMP DS TABL1 TAB PO
== END | disposition home or self-care (01) ==
LOC: D.LABREF 19:35
PROVIDERS: ATTEND Orthopaedic Surgery
DX: L02.511 Cutaneous abscess of right hand (principal)

== ENCOUNTER 2019-09-25 05:08 | Inpatient (IN) | payer BC ==
--- NOTE | 2019-09-24 16:56 | NUR ---
EVELIA NOTE: PAU AT DR. JIMENEZ'S OFFICE NOTIFIED PATIENT CURRENTLY TAKES PLAVIX 75MG DAILY WITH LAST DOSE TAKEN 09/23/2019. STATES SHE WILL INFORM BASILIO DIAZ.
[2019-09-25] VITALS (7 sets, daily range): BP systolic 132–160; BP diastolic 54–96; BMI 23.8
[~2019-09-25] VITALS: Ht 154.9 cm; Wt 57.2 kg
[~2019-09-25 05:08] MED LIST changes: -SMZ-TMP DS TABL1 TAB PO
[2019-09-25 06:29] LABS: CALC OSMOLALITY 283 mosm/kg (275-300); CALCIUM 8.9 mg/dL (8.5-10.1); CARBON DIOXIDE 19.9 mmol/L (21.0-32.0); CHLORIDE - SERUM 108 mmol/L (98-107); CREATININE - SERUM 0.5 mg/dL (0.6-1.3); GLUCOSE 103 mg/dL (74-106); POTASSIUM - SERUM 4.1 mmol/L (3.5-5.1); SODIUM 143 mmol/L (136-145); UREA NITROGEN 11 mg/dL (7-18); eGFR NON AFRICAN AMERICAN > 90 mL/min (90-120)
[2019-09-25 07:00] LABS: BASOPHILS 0.5 % (0-2); EOSINOPHILS 4.3 % (0-7); HEMATOCRIT 34.6 % (36.0-48.0); HEMOGLOBIN 11.6 g/dL (12-16); IMMATURE GRANULOCYTES 0.4 % (0-5); LYMPHOCYTES 34.3 % (15-50); MCH 28.4 pg (26.0-34.0); MCHC 33.5 g/dL (31.0-37.0); MCV 84.8 fL (80.0-100.0); MEAN PLATELET VOLUME 9.4 fL (7.4-10.4); MONOCYTES 10.2 % (2-11); NEUTROPHILS 50.3 % (40-80); RBC 4.08 10x6/uL (4.00-5.40); RDW 15.1 % (11.5-14.5); WBC 7.9 10x3/uL (4.8-10.8)
[2019-09-25 07:23] LABS: PLATELET COUNT 145 10x3/uL (130-400)
--- NOTE | 2019-09-25 09:38 | NUR ---
RECEIVED PT FROM RECOVERY. PT IS AAO AND UP WITH ASSIST. RIGHT ARM IN SLING AND DRESSING ON RIGHT HAND C/D/I. VSS AND WNL. PT IS LYING SEMI FOWLERS. CALL LIGHT W/I REACH. WILL CTM. QUICKSTART, HISTORY, AND MED REQ COMPLETE.
--- NOTE | 2019-09-25 20:10 | NUR ---
SITTING UP IN BED. ALERT AND ORIENTED X4. NASAL CONGESTION NOTED WITH OCC NONPROD COUGH. RESP EVEN AND NONLABORED. CHRISTINA WRAP NOTED TO RT HAND. C/O PAIN RATING 10 ON PAIN SCALE. NOT TIME FOR PERCOCET YET. STATES SHE WILL WAIT FOR IT. 1/2 NS @ 50 MLHR INFUSING IN LT WRIST WITHOUT DIFF. AMBULATORY. SR ELEVATED X2. CL IN REACH.
--- NOTE | 2019-09-25 22:30 | NUR ---
MEDICATED WITH PERCOCET ORDERED FOR C/O PAIN IN RT HAND. CL IN REACH.
[2019-09-26 01:14] VITALS: BP 148/62
--- NOTE | 2019-09-26 03:41 | NUR ---
RESTING IN BED WITH EYES CLOSED. RESP EVEN AND NONLABORED. NO DISTRESS. CL IN REACH.
--- NOTE | 2019-09-26 04:30 | NUR ---
RESTING WITH EYES CLOSED. RESP EVEN AND NONLABORED. NO DISTRESS. CL IN REACH.
[2019-09-26 06:06] VITALS: BP 126/71
[2019-09-26 06:34] LABS: MCHC 34.3 g/dL (31.0-37.0); MEAN PLATELET VOLUME 8.7 fL (7.4-10.4); RBC 3.28 10x6/uL (4.00-5.40); RDW 14.9 % (11.5-14.5); WBC 7.1 10x3/uL (4.8-10.8)
[2019-09-26 06:45] LABS: HEMATOCRIT 26.8 % (36.0-48.0); HEMOGLOBIN 9.2 g/dL (12-16); MCV 81.7 fL (80.0-100.0)
[2019-09-26 06:46] LABS: CALC OSMOLALITY 278 mosm/kg (275-300); CALCIUM 7.7 mg/dL (8.5-10.1); CARBON DIOXIDE 23.5 mmol/L (21.0-32.0); CHLORIDE - SERUM 110 mmol/L (98-107); CREATININE - SERUM 0.5 mg/dL (0.6-1.3); GLUCOSE 88 mg/dL (74-106); POTASSIUM - SERUM 3.5 mmol/L (3.5-5.1); SODIUM 141 mmol/L (136-145); UREA NITROGEN 9 mg/dL (7-18); eGFR NON AFRICAN AMERICAN > 90 mL/min (90-120)
--- NOTE | 2019-09-26 07:30 | NUR ---
ALERT AND ORIENTED, RESTING IN BED. NO C/O PAIN. NO S/S OF ACUTE DISTRESS NOTED. POD #1 I&D RIGHT HAND. DRESSING C/D/I. IV TO LEFT WRIST, 1/2 NS INFUSING @ 50ML/HR. H&H DOWN FROM YESTERDAY, 11.6/34.6 AND TODAY 9.2/26.8 . PATIENT WEARS GLASSES. NON-PRODUCTIVE COUGH. C/O NASAL CONGESTION. DENIES ANY NEEDS AT THIS TIME. CALL LIGHT IN REACH. WILL CONTINUE TO MONITOR.
[2019-09-26 08:55] VITALS: BP 145/65
[2019-09-26 10:29] VITALS: Ht 154.9 cm; Wt 57.2 kg
[2019-09-26 12:55] VITALS: BP 149/74
--- NOTE | 2019-09-26 13:30 | NUR ---
I have reviewed this patient and I concur with the Shift Assessment completed by the Licensed Practical Nurse today this shift.
[2019-09-26 17:33] VITALS: BP 163/74
--- NOTE | 2019-09-26 18:33 | NUR ---
ALERT AND ORIENTED. RESTING IN BED WITH EYES OPEN. NO C/O PAIN. NO S/S OF ACUTE DISTRESS NOTED. DENIES ANY NEEDS AT THIS TIME. CALL LIGHT IN REACH. WILL CONTINUE TO MONITOR.
[2019-09-26 19:30] VITALS: BP 144/61
--- NOTE | 2019-09-26 21:30 | NUR ---
SITTING UP IN BED, A&0 X 4. REPORTS PAIN OF 07/15. DRESSING TO RIGHT HAND C/D/I. DENIES FURTHER NEEDS, WILL CONTINUE TO MONITOR.
[2019-09-27 00:30] VITALS: BP 138/68
--- NOTE | 2019-09-27 02:07 | NUR ---
I have reviewed this patient and I concur with the Shift Assessment completed by the Licensed Practical Nurse today this shift.
[2019-09-27 05:07] LABS: HEMATOCRIT 26.9 % (36.0-48.0); HEMOGLOBIN 9.2 g/dL (12-16); MCH 27.8 pg (26.0-34.0); MCHC 34.2 g/dL (31.0-37.0); MCV 81.3 fL (80.0-100.0); MEAN PLATELET VOLUME 8.6 fL (7.4-10.4); RBC 3.31 10x6/uL (4.00-5.40); WBC 5.7 10x3/uL (4.8-10.8)
[2019-09-27 05:26] VITALS: BP 151/67
[2019-09-27 05:31] LABS: CALC OSMOLALITY 279 mosm/kg (275-300); CALCIUM 7.9 mg/dL (8.5-10.1); CARBON DIOXIDE 24.2 mmol/L (21.0-32.0); CHLORIDE - SERUM 110 mmol/L (98-107); CREATININE - SERUM 0.4 mg/dL (0.6-1.3); GLUCOSE 89 mg/dL (74-106); POTASSIUM - SERUM 3.4 mmol/L (3.5-5.1); SODIUM 142 mmol/L (136-145); UREA NITROGEN 7 mg/dL (7-18); eGFR NON AFRICAN AMERICAN > 90 mL/min (90-120)
--- NOTE | 2019-09-27 08:19 | NUR ---
ALERT AND ORIENTED, RESTING IN BED. NO C/O PAIN. NO S/S OF ACUTE DISTRESS NOTED. POD #2 RIGHT HAND I&D, DRESSING C/D/I. SCDS PRESENT. IV TO LEFT WRIST, 1/2 NS INFUSING @ 100ML/HR. SITE PATENT WITHOUT REDNESS OR SWELLING. DENIES ANY NEEDS AT THIS TIME. CALL LIGHT IN REACH. WILL CONTINUE TO MONITOR.
[2019-09-27 08:45] VITALS: BP 152/75
--- NOTE | 2019-09-27 11:27 | NUR ---
I have reviewed this patient and I concur with the Shift Assessment completed by the Licensed Practical Nurse today this shift.
--- NOTE | 2019-09-27 11:36 | MORECARE ---
CASE MANAGEMENT DISCHARGE SUMMARY PATIENT: MAI BALL UNIT: [id number] ADM DATE: 09/25/19 AGE: 68 : 52 SEX: F ROOM/BED: D.2240 AUTHOR: TESHA VINES PHYSICIAN: REFERRING PHYSICIAN: ABDELRAHMAN JIMENEZ MD DATE OF SERVICE: 09/27/19 Discharge Plan Patient Name: MAI BALL [facility] [facility] 1950 Planned Disposition: Home Anticipated Discharge Date: Discharge Date: Expected LOS: Initial Reviewer: [email or web address] Initial Review Date: 09/27/2019 Generated: 09/27/19 12:35 pm DCPIA - Discharge Planning Initial Assessment Updated by [email or web address]: Rupa Ann on 09/27/19 11:34 am * Is the patient Alert and Oriented? Yes * How many steps to enter\exit or inside your home? 2/0 * PCP Dr. Ramírez * Pharmacy [facility] on [facility] * Preadmission Environment Home Alone * ADLs Independent * Equipment Other * Other Equipment Arm sling * List name and contact numbers for known caregivers / representatives who currently or will assist patient after discharge: Sandra Ball - DTR - [phone] * Verbal permission to speak to the caregivers and representatives has been obtained from the patient. Yes * Community resources currently utilized None * Additional services required to return to the preadmission environment? No * Can the patient safely return to the preadmission environment? Yes * Has this patient been hospitalized within the prior 30 days at any hospital? No Patient Name: MAI BALL Page [phone] at 1136 All edits/amendments must be made on the electronic document DICTATION DATE: 09/27/19 1135 ONLINE RETAILER: RANDOLPH 09/27/19 1135 RPT#: [id number] DC DATE: STATUS: ADM IN [facility] [address] [place] [address] END OF REPORT
--- NOTE | 2019-09-27 11:42 | MORECARE ---
CASE MANAGEMENT DISCHARGE SUMMARY PATIENT: MAI BALL UNIT: [id number] ADM DATE: 09/25/19 AGE: 68 : 52 SEX: F ROOM/BED: D.2240 AUTHOR: MOHINDER,DOC PHYSICIAN: REFERRING PHYSICIAN: ABDELRAHMAN JIMENEZ MD DATE OF SERVICE: 09/27/19 Discharge Plan Patient Name: MAI BALL Facility: [facility]:[place] : 1950 Planned Disposition: Home Anticipated Discharge Date: Discharge Date: Expected LOS: Initial Reviewer: [email or web address] Initial Review Date: 09/27/2019 Generated: 09/27/19 12:42 pm Comments DCP- Discharge Planning Updated by [email or web address]: Rupa Ann on 09/27/19 10:[address] Patient Name: MAI BALL Admission Status: Elective Accout number: [id number] Admission Date: 09-25-2019 : 1950 Admission Diagnosis: Attending: ABDELRAHMAN JIMENEZ Current LOS: 2 Anticipated DC Date: Planned Disposition: Home Primary Insurance: [employer] O Discharge Planning Comments: CM met with patient to discuss discharge planning/needs. I informed her that I spoke with Kendy Heller (Dr. Jimenez's BUILDING COMPONENTS DESIGNER) and she suggests that she have home health for dressing changes. Patient declines and states her daughter will be staying with her and she can change her dressing. I informed her that their was packing that needed to be done and she states "my daughter can do that." States her daughter was a GLASS CYLINDER FLANGER. Refusal for home health signed. I spoke with patient's primary nurse (Eerndira), and she states she will instruct daughter on how to change the dressing. Patient states she is independent and has no DME at home or need any DME. States her family will take her home on discharge. CM will continue to follow and assist with discharge planning/needs. Dealer Sales Manager: Rupa Ann DCPIA - Discharge Planning Initial Assessment Updated by [email or web address]: Rupa Ann on 09/27/19 11:34 am * Is the patient Alert and Oriented? Yes * How many steps to enter\\exit or inside your home? 2/0 * PCP Dr. Ramírez * Pharmacy [facility] * Preadmission Environment Home Alone * ADLs Independent * Equipment Other * Other Equipment Arm sling * List name and contact numbers for known caregivers / representatives who currently or will assist patient after discharge: Sandra Ball - DTR - [phone] * Verbal permission to speak to the caregivers and representatives has been obtained from the patient. Yes * Community resources currently utilized None * Additional services required to return to the preadmission environment? No * Can the patient safely return to the preadmission environment? Yes * Has this patient been hospitalized within the prior 30 days at any hospital? No Coverage Notice Reviewer: [id number] Teofilo Ann Notice Issued Date-Time: 09/27/2019 11:39 Notice Type: Patient Choice Letter Notice Delivered To: Patient Relationship to Patient: Self Program Strategist Name: Delivery Method: HAND - Hand Delivered Mandi Days: Prior Verbal Notification: Recipient Understood Notice: Yes Recipient Signature: Yes Med Rec Note Co-signed by Attending: Coverage Notice Comment: Refusal for home health signed Last DP export: 09/27/19 10:36 a Patient Name: MAI BALL Page [phone] at 1142 All edits/amendments must be made on the electronic document DICTATION DATE: 09/27/19 1142 CLINICAL ENGINEERING DIRECTOR: RANDOLPH 09/27/19 1142 RPT#: [id number] DC DATE: STATUS: ADM IN [facility] [address] [place] [address] END OF REPORT
--- NOTE | 2019-09-27 12:00 | NUR ---
REMOVED DRESSING TO RIGHT HAND AND REMOVED PACKING. CLEANED WOUND WITH STERILE NS. PACKED WOUND WITH 1/4 IODOFORM. APPLIED WET 4X4. COVERED WITH DRY 4X4. WRAPPED WITH KERLEX AND CHRISTINA WRAP.
[2019-09-27 12:26] VITALS: BP 156/76
--- NOTE | 2019-09-27 14:10 | NUR ---
IV TO LEFT WRIST INFILTRATED, DISCONTINUED WITH CATHETER TIP INTACT. RESITED IV TO LEFT FOREARM, 22 GA X1 STICK WITH BLOOD RETURN.
--- NOTE | 2019-09-27 15:20 | MORECARE ---
CASE MANAGEMENT DISCHARGE SUMMARY PATIENT: MAI BALL UNIT: [id number] ADM DATE: 09/25/19 AGE: 68 : 52 SEX: F ROOM/BED: D.2240 AUTHOR: MOHINDER,DOC PHYSICIAN: REFERRING PHYSICIAN: ABDELRAHMAN JIMENEZ MD DATE OF SERVICE: 09/27/19 Discharge Plan Patient Name: MAI BALL Facility: [facility]:[place] : 1950 Planned Disposition: Home Anticipated Discharge Date: Discharge Date: Expected LOS: Initial Reviewer: [id number] Initial Review Date: 09/27/2019 Generated: 09/27/19 4:19 pm Comments DCP- Discharge Planning Updated by [email or web address]: Rupa Ann on 09/27/19 2:[address] Kendy Heller rounded. States patient states she will agree to home health. Spoke with patient and she states she doesn't care what home health to use, as long as they can take her insurance. CALVIN signed for [facility]. I spoke with Steve with [facility] and clinical faxed. Steve states they will need to get preauth from insurance. DCP- Discharge Planning Updated by [email or web address]: Rupa Ann on 09/27/19 10:[address] Patient Name: MAI BALL Admission Status: Elective Accout number: [id number] Admission Date: 09-25-2019 : 1950 Admission Diagnosis: Attending: ABDELRAHMAN JIMENEZ Current LOS: 2 Anticipated DC Date: Planned Disposition: Home Primary Insurance: [employer] HMO Discharge Planning Comments: CM met with patient to discuss discharge planning/needs. I informed her that I spoke with Kendy Heller (Dr. Jimenez's VEGETABLE TESTER) and she suggests that she have home health for dressing changes. Patient declines and states her daughter will be staying with her and she can change her dressing. I informed her that their was packing that needed to be done and she states "my daughter can do that." States her daughter was a TRANSPORTATION INSPECTOR. Refusal for home health signed. I spoke with patient's primary nurse (Erendira), and she states she will instruct daughter on how to change the dressing. Patient states she is independent and has no DME at home or need any DME. States her family will take her home on discharge. CM will continue to follow and assist with discharge planning/needs. Glucose And Syrup Weigher: Rupa Seth DCPIA - Discharge Planning Initial Assessment Updated by [id number]: Rupa Ann on 09/27/19 11:34 am * Is the patient Alert and Oriented? Yes * How many steps to enter\\exit or inside your home? 2/0 * PCP Dr. Ramírez * Pharmacy [facility] on [facility] * Preadmission Environment Home Alone * ADLs Independent * Equipment Other * Other Equipment Arm sling * List name and contact numbers for known caregivers / representatives who currently or will assist patient after discharge: Sandra Ball - DTR - [phone] * Verbal permission to speak to the caregivers and representatives has been obtained from the patient. Yes * Community resources currently utilized None * Additional services required to return to the preadmission environment? No * Can the patient safely return to the preadmission environment? Yes * Has this patient been hospitalized within the prior 30 days at any hospital? No External Providers External Provider: [facility] Next Contact Date: Service Request Date: Service Type: Resolution: Reviewer: Comments: Coverage Notice Reviewer: [email or web address] Teofilo Ann Notice Issued Date-Time: 09/27/2019 11:39 Notice Type: Patient Choice Letter Notice Delivered To: Patient Relationship to Patient: Self Shipping Clerk Name: Delivery Method: HAND - Hand Delivered Mandi Days: Prior Verbal Notification: Recipient Understood Notice: Yes Recipient Signature: Yes Med Rec Note Co-signed by Attending: Coverage Notice Comment: Refusal for home health signed Reviewer: [email or web address] Teofilo Ann Notice Issued Date-Time: 09/27/2019 15:15 Notice Type: Patient Choice Letter Notice Delivered To: Patient Relationship to Patient: Self Shipping Clerk Name: Delivery Method: HAND - Hand Delivered Mandi Days: Prior Verbal Notification: Recipient Understood Notice: Yes Recipient Signature: Yes Med Rec Note Co-signed by Attending: Coverage Notice Comment: [facility]VIN for [facility], Aleida Leo Last DP export: 09/27/19 10:42 a Patient Name: MAI BALL Page [id number] at 1520 All edits/amendments must be made on the electronic document DICTATION DATE: 09/27/191518 METAL CRAFTS TEACHER: RANDOLPH 09/27/191518 RPT#: [id number] DC DATE: STATUS: ADM IN [facility] [address] [place] [address] END OF REPORT
[2019-09-27] MEDS ORDERED: SMZ-TMP DS TABL1 TAB PO (16:35)
[2019-09-27] MEDS ORDERED: HYDROCODON-ACE1 EAC7 PO (16:35)
[2019-09-27 17:02] VITALS: BP 144/77
--- NOTE | 2019-09-27 17:19 | MORECARE ---
CASE MANAGEMENT DISCHARGE SUMMARY PATIENT: MAI BALL UNIT: [id number] ADM DATE: 09/25/19 AGE: 68 : 52 SEX: F ROOM/BED: D.2240 AUTHOR: MOHINDER,DOC PHYSICIAN: REFERRING PHYSICIAN: ABDELRAHMAN JIMENEZ MD DATE OF SERVICE: 09/27/19 Discharge Plan Patient Name: MAI BALL Facility: [facility]:[place] : 1950 Planned Disposition: Home Anticipated Discharge Date: Discharge Date: Expected LOS: Initial Reviewer: [email or web address] Initial Review Date: 09/27/2019 Generated: 09/27/19 6:18 pm Comments DCP- Discharge Planning Updated by [email or web address]: Rupa Ann on 09/27/19 2:[address] Kendy Heller rounded. States patient states she will agree to home health. Spoke with patient and she states she doesn't care what home health to use, as long as they can take her insurance. CALVIN signed for [facility]. I spoke with Steve with [facility] and clinical faxed. Steve states they will need to get preauth from insurance. DCP- Discharge Planning Updated by [id number]: Rupa Ann on 09/27/19 10:[address] Patient Name: MAI BALL Admission Status: Elective Accout number: [id number] Admission Date: 09-25-2019 : 1950 Admission Diagnosis: Attending: ABDELRAHMAN JIMENEZ Current LOS: 2 Anticipated DC Date: Planned Disposition: Home Primary Insurance: [email or web address] HMO Discharge Planning Comments: CM met with patient to discuss discharge planning/needs. I informed her that I spoke with Kendy Heller (Dr. Jimenez's SALES INSPECTOR) and she suggests that she have home health for dressing changes. Patient declines and states her daughter will be staying with her and she can change her dressing. I informed her that their was packing that needed to be done and she states "my daughter can do that." States her daughter was a MANAGED SERVICES CONSULTANT. Refusal for home health signed. I spoke with patient's primary nurse (Erendira), and she states she will instruct daughter on how to change the dressing. Patient states she is independent and has no DME at home or need any DME. States her family will take her home on discharge. CM will continue to follow and assist with discharge planning/needs. Workforce Analyst: Rupa Ann DCPIA - Discharge Planning Initial Assessment Updated by [id number]: Rupa Ann on 09/27/19 11:34 am * Is the patient Alert and Oriented? Yes * How many steps to enter\\exit or inside your home? 2/0 * PCP Dr. Ramírez * Pharmacy [facility] on [facility] * Preadmission Environment Home Alone * ADLs Independent * Equipment Other * Other Equipment Arm sling * List name and contact numbers for known caregivers / representatives who currently or will assist patient after discharge: Sandra Ball - DTR - [phone] * Verbal permission to speak to the caregivers and representatives has been obtained from the patient. Yes * Community resources currently utilized None * Additional services required to return to the preadmission environment? No * Can the patient safely return to the preadmission environment? Yes * Has this patient been hospitalized within the prior 30 days at any hospital? No Coverage Notice Reviewer: [id number] Teofilo Ann Notice Issued Date-Time: 09/27/2019 11:39 Notice Type: Patient Choice Letter Notice Delivered To: Patient Relationship to Patient: Self Commercial Makeup Artist Name: Delivery Method: HAND - Hand Delivered Mandi Days: Prior Verbal Notification: Recipient Understood Notice: Yes Recipient Signature: Yes Med Rec Note Co-signed by Attending: Coverage Notice Comment: Refusal for home health signed Reviewer: [id number] Ann Notice Issued Date-Time: 09/27/2019 15:15 Notice Type: Patient Choice Letter Notice Delivered To: Patient Relationship to Patient: Self Commercial Makeup Artist Name: Delivery Method: HAND - Hand Delivered Mandi Days: Prior Verbal Notification: Recipient Understood Notice: Yes Recipient Signature: Yes Med Rec Note Co-signed by Attending: Coverage Notice Comment: [facility]VIN for [facility], lAeida Leo Last DP export: 09/27/19 2:20 p Patient Name: MAI BALL Page [phone] at 4245 All edits/amendments must be made on the electronic document DICTATION DATE: 09/27/191717 STYLIST APPRENTICE: RANDOLPH 09/27/191717 RPT#: [id number] DC DATE: STATUS: ADM IN [facility] [address] [place] [address] END OF REPORT
--- NOTE | 2019-09-27 17:27 | MORECARE ---
CASE MANAGEMENT DISCHARGE SUMMARY PATIENT: MAI BALL UNIT: [id number] ADM DATE: 09/25/19 AGE: 68 : 54 SEX: F ROOM/BED: D.2240 AUTHOR: MOHINDER,DOC PHYSICIAN: REFERRING PHYSICIAN: ABDELRAHMAN JIMENEZ MD DATE OF SERVICE: 09/27/19 Discharge Plan Patient Name: MAI BALL Facility: [facility]:[place] : 1950 Planned Disposition: Home Anticipated Discharge Date: Discharge Date: Expected LOS: Initial Reviewer: [email or web address] Initial Review Date: 09/27/2019 Generated: 09/27/19 6:27 pm Comments DCP- Discharge Planning Updated by [email or web address]: Erendira Chaparro on 09/27/19 4:[address] Steve with [facility] called and stated that they have auth and can start of care tomorrow. I have sent all DC clinicals to [facility] DCP- Discharge Planning Updated by [email or web address]: Rupa Ann on 09/27/19 2:[address] Kendy Heller rounded. States patient states she will agree to home health. Spoke with patient and she states she doesn't care what home health to use, as long as they can take her insurance. CALVIN signed for [facility]. I spoke with Steve with [facility] and clinical faxed. Steve states they will need to get preauth from insurance. DCP- Discharge Planning Updated by [id number]: Rupa Ann on 09/27/19 10:[address] Patient Name: MAI BALL Admission Status: Elective Accout number: [id number] Admission Date: 09-25-2019 : 1950 Admission Diagnosis: Attending: ABDELRAHMAN JIMENEZ Current LOS: 2 Anticipated DC Date: Planned Disposition: Home Primary Insurance: [employer] O Discharge Planning Comments: CM met with patient to discuss discharge planning/needs. I informed her that I spoke with Kendy Heller (Dr. Jimenez's RUBBER LINER) and she suggests that she have home health for dressing changes. Patient declines and states her daughter will be staying with her and she can change her dressing. I informed her that their was packing that needed to be done and she states "my daughter can do that." States her daughter was a MANAGER FIELD SERVICE. Refusal for home health signed. I spoke with patient's primary nurse (Erendira), and she states she will instruct daughter on how to change the dressing. Patient states she is independent and has no DME at home or need any DME. States her family will take her home on discharge. CM will continue to follow and assist with discharge planning/needs. Construction Technician: Rupa Ann DCPIA - Discharge Planning Initial Assessment Updated by [email or web address]: Rupa Ann on 09/27/19 11:34 am * Is the patient Alert and Oriented? Yes * How many steps to enter\\exit or inside your home? 2/0 * PCP Dr. Ramírez * Pharmacy [facility] on [facility] * Preadmission Environment Home Alone * ADLs Independent * Equipment Other * Other Equipment Arm sling * List name and contact numbers for known caregivers / representatives who currently or will assist patient after discharge: Sandra Chambersin - DTR - [phone] * Verbal permission to speak to the caregivers and representatives has been obtained from the patient. Yes * Community resources currently utilized None * Additional services required to return to the preadmission environment? No * Can the patient safely return to the preadmission environment? Yes * Has this patient been hospitalized within the prior 30 days at any hospital? No Coverage Notice Reviewer: [id number] Teofilo Ann Notice Issued Date-Time: 09/27/2019 11:39 Notice Type: Patient Choice Letter Notice Delivered To: Patient Relationship to Patient: Self Fisher Weir Name: Delivery Method: HAND - Hand Delivered Mandi Days: Prior Verbal Notification: Recipient Understood Notice: Yes Recipient Signature: Yes Med Rec Note Co-signed by Attending: Coverage Notice Comment: Refusal for home health signed Reviewer: [id number] Teofilo Ann Notice Issued Date-Time: 09/27/2019 15:15 Notice Type: Patient Choice Letter Notice Delivered To: Patient Relationship to Patient: Self Fisher Weir Name: Delivery Method: HAND - Hand Delivered Mandi Days: Prior Verbal Notification: Recipient Understood Notice: Yes Recipient Signature: Yes Med Rec Note Co-signed by Attending: Coverage Notice Comment: [facility]VIN for [facility], [facility] Last DP export: 09/27/19 4:19 p Patient Name: MAI BALL Page [phone] at 1727 All edits/amendments must be made on the electronic document DICTATION DATE: 09/27/191726 AUTO BODY REPAIR TEACHER: RANDOLPH 09/27/191726 RPT#: [id number] DC DATE: STATUS: ADM IN [facility] [address] [place] [address] END OF REPORT
--- NOTE | 2019-09-27 18:14 | NUR ---
DISCHARGED PATIENT HOME WITH FAMILY. DISCONTINUED IV, CATHETER TIP INTACT. WENT OVER DISCHARGE INSTRUCTIONS WITH PATIENT, VERBALIZED UNDERSTANDING. DENIES ANYTHING FURTHER.
--- NOTE | 2019-10-01 08:52 | MORECARE ---
CASE MANAGEMENT DISCHARGE SUMMARY PATIENT: MAI BALL UNIT: [id number] ADM DATE: 09/25/19 AGE: 68 : [birth year] SEX: F ROOM/BED: D.2240 AUTHOR: MOHINDER,DOC PHYSICIAN: REFERRING PHYSICIAN: ABDELRAHMAN JIMENEZ MD DATE OF SERVICE: 10/01/19 Discharge Plan Patient Name: MAI BALL Facility: [facility]:Gregory : 1950 Planned Disposition: Home Anticipated Discharge Date: Discharge Date: 09/27/2019 Expected LOS: Initial Reviewer: [email or web address] Initial Review Date: 09/27/2019 Generated: 10/01/19 9:52 am Comments DCP- Discharge Planning Updated by [email or web address]: Erendira Chaparro on 09/27/19 4:[address] Steve with [facility] called and stated that they have auth and can start of care tomorrow. I have sent all DC clinicals to [facility] DCP- Discharge Planning Updated by [email or web address]: Rupa Ann on 09/27/19 2:[address] Kendy Heller rounded. States patient states she will agree to home health. Spoke with patient and she states she doesn't care what home health to use, as long as they can take her insurance. CALVIN signed for [facility] and [facility]. I spoke with Steve with [facility] and clinical faxed. Steve states they will need to get preauth from insurance. DCP- Discharge Planning Updated by [id number]: Rupa Ann on 09/27/19 10:[address] Patient Name: MAI BALL Admission Status: Elective Accout number: [id number] Admission Date: 09-25-2019 : 1950 Admission Diagnosis: Attending: ABDELRAHMAN JIMENEZ Current LOS: 2 Anticipated DC Date: Planned Disposition: Home Primary Insurance: [employer] O Discharge Planning Comments: CM met with patient to discuss discharge planning/needs. I informed her that I spoke with Kendy Heller (Dr. Jimenez's METAL OFF BEARER) and she suggests that she have home health for dressing changes. Patient declines and states her daughter will be staying with her and she can change her dressing. I informed her that their was packing that needed to be done and she states "my daughter can do that." States her daughter was a CHEF TE[employer]. Refusal for home health signed. I spoke with patient's primary nurse (Erendira), and she states she will instruct daughter on how to change the dressing. Patient states she is independent and has no DME at home or need any DME. States her family will take her home on discharge. CM will continue to follow and assist with discharge planning/needs. Stretch Press Operator: Rupa Ann DCPIA - Discharge Planning Initial Assessment Updated by [id number]: Rupa Ann on 09/27/19 11:34 am * Is the patient Alert and Oriented? Yes * How many steps to enter\\exit or inside your home? 2/0 * PCP Dr. Ramírez * Pharmacy [facility] * Preadmission Environment Home Alone * ADLs Independent * Equipment Other * Other Equipment Arm sling * List name and contact numbers for known caregivers / representatives who currently or will assist patient after discharge: Sandra Ball - DTR - [phone] * Verbal permission to speak to the caregivers and representatives has been obtained from the patient. Yes * Community resources currently utilized None * Additional services required to return to the preadmission environment? No * Can the patient safely return to the preadmission environment? Yes * Has this patient been hospitalized within the prior 30 days at any hospital? No Coverage Notice Reviewer: [email or web address] Teofilo Ann Notice Issued Date-Time: 09/27/2019 11:39 Notice Type: Patient Choice Letter Notice Delivered To: Patient Relationship to Patient: Self Senior Care Assistant Name: Delivery Method: HAND - Hand Delivered Mandi Days: Prior Verbal Notification: Recipient Understood Notice: Yes Recipient Signature: Yes Med Rec Note Co-signed by Attending: Coverage Notice Comment: Refusal for home health signed Reviewer: [email or web address] Teofilo Ann Notice Issued Date-Time: 09/27/2019 15:15 Notice Type: Patient Choice Letter Notice Delivered To: Patient Relationship to Patient: Self Senior Care Assistant Name: Delivery Method: HAND - Hand Delivered Mandi Days: Prior Verbal Notification: Recipient Understood Notice: Yes Recipient Signature: Yes Med Rec Note Co-signed by Attending: Coverage Notice Comment: CALVIN for [facility], [facility], [facility] Last DP export: 09/27/19 4:27 p Patient Name: MAI BALL Page [id number] at 0852 All edits/amendments must be made on the electronic document DICTATION DATE: 10/01/19851 RESEARCH & ANALYTICS MANAGER: RANDOLPH 10/01/19851 RPT#: [id number] DC DATE:09/27/19 STATUS: DIS IN [facility] [address] [facility] [place] [address] END OF REPORT
--- NOTE | 2019-10-02 11:32 | OP ---
PATIENT NAME: MAI BALL MEDICAL RECORD: [id number] :54 LOCATION:D.MS [address]2240 ADMISSION DATE:09/25/19 SURGEON: ABDELRAHMAN JIMENEZ MD DATE OF OPERATION: 09/25/2019 PREOPERATIVE DIAGNOSIS: Flexor tenosynovitis of the right index finger. POSTOPERATIVE DIAGNOSIS: Flexor tenosynovitis of the right index finger. PROCEDURE: Excisional debridement of flexor tenosynovitis. SURGEON: Abdelrahman Jimenez MD ANESTHESIA: General. INTRAOPERATIVE COMPLICATIONS: None. SUMMARY OF PATHOLOGIC FINDINGS: The patient had a deep space infection consistent with preoperative diagnosis upon incising the patient's bolus like blisters, copious amounts of purulence was taken for both regular culture and DNA testing. OPERATIVE SUMMARY IN DETAIL: After obtaining the appropriate preoperative orthopedic surgery consent as well as anesthetic consultation, evaluation and clearance, the patient was brought to the operating room and placed on the operating table in a supine position. After general laryngeal mask airway was administered, tourniquet was placed about the proximal aspect of the right upper extremity . Right upper extremity was then prepped and draped in routine sterile fashion. The arm was not exsanguinated. Tourniquet was not deployed. However, after taking the appropriate time out and using the patient's unique identifiers, the case was started and incision was made over the bolus. At this point, cultures as mentioned above were taken. The incision was taken down to the flexor sheath. A zigzag incision was made to open up the flexor tendon sheath. At this point, copious irrigation as well as excisional debridement of skin, subcutaneous tissue, portions of fat and fascia were removed using both a scalpel curettage as well as rongeur. Irrigation was again followed in the flexor tendon sheath itself. It is of note that the A2 and A1 alireza were still intact. They were, however, debrided underneath and they were left intact. All necrotic appearing tissue of the finger was removed. At this point, the more proximal end of the incision was closed, while the more distal end that was purulent infected was left open and packed. Sterile dressings were applied. The patient was awakened and taken to the recovery room in stable condition. All final needle and sponge counts were correct. TRANSINT:[id number] Voice Confirmation ID: [id number] DOCUMENT ID: [id number] Edited for date of operation, dmm. OPERATIVE REPORT [id number] MAI BALL MD, ABDELRAHMAN CHOUDHARY at 1132 CC: [id number] DICTATION DATE: 09/30/19 1144 FITTER UP: 09/30/19 1519 DIS IN 09/27/19 [facility] [address] [place] [place] [id number]
== END 2019-09-27 19:52 | disposition home health service (06) | DRG 983 ==
LOC: D.OPS 05:08 → D.PAN 07:30 → D.OPS 07:30 → D.MS 08:49 → D.OPS 09:07 → D.MS 09-27 19:52
PROVIDERS: Anesthesiology; ADMIT Orthopaedic Surgery; ATTEND Orthopaedic Surgery
PROC: 0LB70ZZ Excision of Right Hand Tendon, Open Approach (ICD-10-PCS; principal; 2019-09-25 07:30)
DX: L02.511 Cutaneous abscess of right hand (principal); M65.841 Other synovitis and tenosynovitis, right hand; J44.9 Chronic obstructive pulmonary disease, unspecified; I10 Essential (primary) hypertension

== ENCOUNTER 2020-04-18 22:54 | Inpatient (IN) | payer MEDICARE ==
[~2020-04-18] VITALS: Ht 154.9 cm; Wt 73.6 kg
--- NOTE | ~2020-04-18 | EC ---
PATIENT:MAI BALL DATE OF SERVICE: 04/19/20 SEX: F MEDICAL RECORD: [id number] DATE OF : [birth year] LOCATION:D. D.211 AGE OF PATIENT: 69 ADMISSION DATE: 04/19/20 REFERRING PHYSICIAN: INTERPRETING PHYSICIAN: CHAKA BAR MD ECHOCARDIOGRAM REPORT ECHO CHARGES 4 ECHO COMPLETE Date: 04/19/20 CLINICAL DIAGNOSIS: CARDIOMEGALY/CHEST PAIN ECHOCARDIOGRAPHIC MEASUREMENTS (adult normal given) AC root (d.<3.7cm) 3.4 cm LV Septum d (<1.2 cm> 1.1 cm Valve Excursion 1.4 cm LV Septum (systole) 1.5 cm Left Atria (s.<4.0cm> 4.0 cm LVPW d(<1.2cm) 1.1 cm RV (d.<2.3cm) 3.3 cm LVPW (sytole) 1.7 cm LV diastole(<5.6CM) 5.4 cm MV E-F(>70mm/sec) cm LV systole 3.5 cm LVOT Diameter 1.6 cm MV exc.(>10mm) 0.80 cm Est.ejection fraction (50-75%) % DOPPLER: LVIT cm/sec A 124.0cm/sec E 71.0 cm/sec LA cm/sec RVSP 19 mmHg LVOT 104 cm/sec AOP1/2T m/s Asc. Ao 147 cm/sec RVOT 83 cm/sec RA cm/sec PA 128 cm/sec AV Gradient Peak 8.69 mmHg AV Mean 5.75 mmHg AV Area 1.6 cm MV Gradient Peak 12.54mmHg MV Mean 4.71 mmHg MV Area cm COMMENTS: Bottle Capper: 2 TRACEE WHITE Prn Physical Therapist: Boy Bar TAPE# PACS Pericardial Effusion N DATE OF SERVICE: PROCEDURE: Transthoracic echocardiogram. FINDINGS: 1. Left ventricle has normal shape, structure, and function. Ejection fraction 65% to 70%. Evidence of diastolic dysfunction and there is possible mild left ventricular hypertrophy. 2. Left atrium is mildly dilated. 3. The mitral valve has normal structure and function with mild mitral ECHOCARDIOGRAM REPORT [id number] MAI BALL regurgitation. 4. The aortic valve is normal. 5. Tricuspid valve is normal. 6. Pericardium is normal. 7. Right ventricle has mild dilatation with normal function. 8. The right atrium is mildly dilated with normal function. 9. Pulmonic valve is grossly normal. TRANSINT:[id number] Voice Confirmation ID: [id number] DOCUMENT ID: [id number] CHAKA BAR MD CC: [id number] DICTATION DATE: 04/20/20942 ELECTRONIC DATA PROCESSING AUDITOR: 04/20/20 1813 ADM IN [facility] [address] [place] [id number]
--- NOTE | ~2020-04-18 | ST ---
PATIENT:MIA BALL MEDICAL RECORD: [id number] SEX: F LOCATION:[facility] D211 ORDER #: ADMISSION DATE: 04/19/20 AGE OF PATIENT: 69 REFERRING PHYSICIAN: INTERPRETING PHYSICIAN: CHAKA ARRIAGA MD DATE OF SERVICE: 04/20/2020 PROCEDURE: Lexiscan directed nuclear stress test. PROCEDURE IN DETAIL: The patient was brought in to the nuclear room. The patient was placed in a supine position on the nuclear table. The patient had Lexiscan and sestamibi injected per protocol and without complications. FINDINGS: SPECT imaging showed no evidence of ischemia. Gated imaging showed no evidence of significant LV dysfunction. The ejection fraction is 50% to 55% with no regional wall motion abnormalities. IMPRESSION: Normal nuclear stress test. Normal left ventricular ejection fraction. RECOMMENDATIONS: Would look at continuing medical management. TRANSINT:[id number] Voice Confirmation ID: [id number] DOCUMENT ID: [id number] CHAKA ARRIAGA MD CC: [id number] DICTATION DATE: 04/20/20 165 CONFERENCE INTERPRETER: 04/21/20 0202 ADM IN [place] [id number] [place] [id number]
[~2020-04-18 22:54] MED LIST changes: +SMZ-TMP DS TABL1 TAB PO
[2020-04-18 23:19] LABS: BASOPHILS 0.5 % (0-2); EOSINOPHILS 1.5 % (0-7); HEMATOCRIT 28.8 % (36.0-48.0); HEMOGLOBIN 9.3 g/dL (12-16); IMMATURE GRANULOCYTES 0.2 % (0-5); LYMPHOCYTES 48.1 % (15-50); MCHC 32.3 g/dL (31.0-37.0); MCV 71.1 fL (80.0-100.0); MEAN PLATELET VOLUME 8.9 fL (7.4-10.4); MONOCYTES 8.6 % (2-11); NEUTROPHILS 41.1 % (40-80); RBC 4.05 10x6/uL (4.00-5.40); RDW 18.4 % (11.5-14.5); WBC 8.1 10x3/uL (4.8-10.8)
[2020-04-18 23:21] LABS: PLATELET COUNT 319 10x3/uL (130-400)
[2020-04-18 23:28] LABS: CALC OSMOLALITY 285 mosm/kg (275-300); CALCIUM 7.8 mg/dL (8.5-10.1); CARBON DIOXIDE 23.5 mmol/L (21.0-32.0); CHLORIDE - SERUM 111 mmol/L (98-107); CREATININE - SERUM 0.5 mg/dL (0.6-1.3); GLUCOSE 98 mg/dL (74-106); POTASSIUM - SERUM 3.6 mmol/L (3.5-5.1); SODIUM 144 mmol/L (136-145); UREA NITROGEN 10 mg/dL (7-18); eGFR NON AFRICAN AMERICAN > 90 mL/min (90-120)
[2020-04-18 23:29] LABS: APTT 26.6 SECONDS (22.8-39.4); INR 1.01 (0.85-1.17); PROTIME 13.2 SECONDS (11.6-15.0)
[2020-04-18 23:44] LABS: ALBUMIN 2.9 g/dL (3.4-5.0); ALKALINE PHOSPHATASE 157 U/L (30-120); ALT (SGPT) 21 U/L (10-68); BILIRUBIN - TOTAL 0.17 mg/dL (0.2-1.3); CKMB 2.5 U/L (0.0-3.6); CREATINE KINASE 210 UL (21-215); MAGNESIUM - SERUM 1.9 mg/dL (1.8-2.4); PROTEIN - SERUM 6.7 g/dL (6.4-8.2); TROPONIN-I 0.056 ng/mL (0.000-0.060)
--- NOTE | 2020-04-19 00:01 | NUR ---
CP 5/10 WILL RECHECK IN 5 MINUTES
[2020-04-19 01:30] VITALS: BP 159/84
[2020-04-19 05:36] VITALS: BP 181/81; BMI 30.6
[2020-04-19 05:44] VITALS: BP 181/81
--- NOTE | 2020-04-19 07:48 | NUR ---
GAVE 2MG OF MORPHINE FOR PAIN LEVEL OF 6/10. PT REFUSED NICOTINE PATCH. PT A/O X4, RESP EVEN AND NONLABORED ON RA. LT HAND IV SL. MONITOR SHOWING SR WITH RATE OF 89. PT DENIES ANY OTHER NEEDS AT THIS TIME. CALL LIGHT IN REACH, NAD NOTED, WILL CONTINUE TO MONITOR.
[2020-04-19 08:19] VITALS: BP 166/82
[2020-04-19 11:28] VITALS: Ht 154.9 cm; Wt 73.6 kg
[2020-04-19 11:48] LABS: CKMB 3.5 U/L (0.0-3.6); CREATINE KINASE 216 UL (21-215); TROPONIN-I 0.042 ng/mL (0.000-0.060)
[2020-04-19 11:59] LABS: % SATURATION 6 % (15-55); IRON 24 ug/dl (35-150); TOTAL IRON BIND CAPACITY 383 ug/dl (260-445); UNSAT IRON BIND CAPACITY 359 ug/dl (150-375)
[2020-04-19 12:00] VITALS: BP 148/64
[2020-04-19 12:10] LABS: BASOPHILS 0.3 % (0-2); EOSINOPHILS 1.6 % (0-7); HEMATOCRIT 29.4 % (36.0-48.0); HEMOGLOBIN 9.5 g/dL (12-16); IMMATURE GRANULOCYTES 0.2 % (0-5); LYMPHOCYTES 42.3 % (15-50); MCH 22.9 pg (26.0-34.0); MCHC 32.3 g/dL (31.0-37.0); MEAN PLATELET VOLUME 8.9 fL (7.4-10.4); NEUTROPHILS 48.6 % (40-80); PLATELET COUNT 323 10x3/uL (130-400); RBC 4.14 10x6/uL (4.00-5.40); RDW 18.5 % (11.5-14.5); WBC 8.8 10x3/uL (4.8-10.8)
[2020-04-19 12:28] LABS: CALCIUM 8.1 mg/dL (8.5-10.1); CARBON DIOXIDE 24.4 mmol/L (21.0-32.0); CHLORIDE - SERUM 107 mmol/L (98-107); CHOL - HDL RATIO 5.7 ratio (2.3-4.1); CHOLESTEROL, TOTAL 238 mg/dL (0-200); CREATINE KINASE 214 UL (21-215); FERRITIN 10 ng/mL (3-244); GLUCOSE 123 mg/dL (74-106); HDL CHOLESTEROL 42 mg/dL (32-96); LDL CHOLESTEROL 147 mg/dL (0-100); LDL-HDL RATIO 3.5 ratio (1.5-3.5); MAGNESIUM - SERUM 1.7 mg/dL (1.8-2.4); PHOSPHOROUS 3.5 mg/dL (2.5-4.9); POTASSIUM - SERUM 3.2 mmol/L (3.5-5.1); SODIUM 141 mmol/L (136-145); TRIGLYCERIDE 245 mg/dL (30-200); TROPONIN-I 0.036 ng/mL (0.000-0.060)
[2020-04-19 12:32] LABS: CALC OSMOLALITY 279 mosm/kg (275-300); CREATININE - SERUM 0.7 mg/dL (0.6-1.3); UREA NITROGEN 6 mg/dL (7-18); eGFR NON AFRICAN AMERICAN 88 mL/min (90-120)
[2020-04-19 16:00] VITALS: BP 169/84
[2020-04-19 19:13] LABS: CKMB 2.7 U/L (0.0-3.6); CREATINE KINASE 197 UL (21-215); TROPONIN-I 0.034 ng/mL (0.000-0.060)
--- NOTE | 2020-04-19 19:38 | NUR ---
RECIEVED UP IN BED WITH EYES OPENA ND TV ON. ALERT AND ORIENTED X4. UP AD HENOK TO B/R. IV TO LT HAND SL. TELEMETRY IN PLACE. DENIES ANY NEEDS AT THIS TIME.
[2020-04-20 02:00] VITALS: BP 155/84
--- NOTE | 2020-04-20 04:52 | NUR ---
PULLED IV OUT. RESTARTED 22GA X1 ATTEMPT TO LT HAND. MORPHINE GIVEN FOR CHEST PAIN. UNABLE TO DESCRIBE PAIN.
[2020-04-20 05:34] LABS: BASOPHILS 0.3 % (0-2); EOSINOPHILS 1.8 % (0-7); HEMATOCRIT 30.4 % (36.0-48.0); HEMOGLOBIN 9.8 g/dL (12-16); IMMATURE GRANULOCYTES 0.1 % (0-5); LYMPHOCYTES 40.4 % (15-50); MCH 22.7 pg (26.0-34.0); MCHC 32.2 g/dL (31.0-37.0); MCV 70.5 fL (80.0-100.0); MEAN PLATELET VOLUME 9.3 fL (7.4-10.4); MONOCYTES 9.1 % (2-11); NEUTROPHILS 48.3 % (40-80); PLATELET COUNT 348 10x3/uL (130-400); RBC 4.31 10x6/uL (4.00-5.40); RDW 18.3 % (11.5-14.5); WBC 7.9 10x3/uL (4.8-10.8)
[2020-04-20 05:51] LABS: CALCIUM 8.3 mg/dL (8.5-10.1); CARBON DIOXIDE 26.4 mmol/L (21.0-32.0); CHLORIDE - SERUM 107 mmol/L (98-107); GLUCOSE 88 mg/dL (74-106); MAGNESIUM - SERUM 1.8 mg/dL (1.8-2.4); PHOSPHOROUS 3.9 mg/dL (2.5-4.9); POTASSIUM - SERUM 3.3 mmol/L (3.5-5.1); SODIUM 141 mmol/L (136-145)
[2020-04-20 05:52] LABS: CALC OSMOLALITY 278 mosm/kg (275-300); CREATININE - SERUM 0.5 mg/dL (0.6-1.3); UREA NITROGEN 9 mg/dL (7-18); eGFR NON AFRICAN AMERICAN > 90 mL/min (90-120)
[2020-04-20 08:00] VITALS: BP 169/73
--- NOTE | 2020-04-20 09:45 | NUR ---
2MG OF MORPHINE GIVEN FOR PAIN LEVEL OF 10/10. PT NPO FOR STRESS TEST. PT DENIES ANY OTHER NEEDS AT THIS TIME. CALL LIGHT IN REACH, NAD NOTED, WILL CONTINUE TO MONITOR.
--- NOTE | 2020-04-20 10:40 | NUR ---
SPOKE WITH RHIANNA HARTMANN AND INFORMED HIM THAT PT IS ASKING WHEN HER HOME MEDICATIONS ARE GOING TO BE STARTED BACK.
--- NOTE | 2020-04-20 11:50 | NUR ---
PT TO NM FOR STRESS TEST.
[2020-04-20 12:00] VITALS: BP 169/77
--- NOTE | 2020-04-20 13:29 | NUR ---
MEDS GIVEN LATE DO TO PT BEING NPO FOR STRESS TEST. PT DENIES ANY NEEDS AT THIS TIME. CALL LIGHT IN REACH, WILL CONTINUE TO MONITOR.
[2020-04-20 16:00] VITALS: BP 116/85
[2020-04-20 20:45] VITALS: BP 131/64
--- NOTE | 2020-04-20 22:01 | NUR ---
BEDTIME MEDS GIVEN. TYLENOL FOR HEADACHE.
[2020-04-21 01:52] VITALS: BP 108/41
[2020-04-21 05:39] LABS: BASOPHILS 0.4 % (0-2); EOSINOPHILS 1.9 % (0-7); HEMATOCRIT 29.8 % (36.0-48.0); HEMOGLOBIN 9.4 g/dL (12-16); IMMATURE GRANULOCYTES 0.1 % (0-5); LYMPHOCYTES 46.8 % (15-50); MCH 22.4 pg (26.0-34.0); MCHC 31.5 g/dL (31.0-37.0); MEAN PLATELET VOLUME 9.7 fL (7.4-10.4); MONOCYTES 9.9 % (2-11); NEUTROPHILS 40.9 % (40-80); PLATELET COUNT 352 10x3/uL (130-400); RDW 18.3 % (11.5-14.5); WBC 7.8 10x3/uL (4.8-10.8)
[2020-04-21 06:21] LABS: CALC OSMOLALITY 285 mosm/kg (275-300); CALCIUM 8.5 mg/dL (8.5-10.1); CARBON DIOXIDE 24.9 mmol/L (21.0-32.0); CHLORIDE - SERUM 108 mmol/L (98-107); CREATININE - SERUM 0.5 mg/dL (0.6-1.3); GLUCOSE 91 mg/dL (74-106); MAGNESIUM - SERUM 2.1 mg/dL (1.8-2.4); POTASSIUM - SERUM 4.3 mmol/L (3.5-5.1); SODIUM 142 mmol/L (136-145); eGFR NON AFRICAN AMERICAN > 90 mL/min (90-120)
[2020-04-21 06:24] LABS: PHOSPHOROUS 4.9 mg/dL (2.5-4.9); UREA NITROGEN 20 mg/dL (7-18)
[2020-04-21 07:06] VITALS: BP 125/49
[2020-04-21 08:00] VITALS: BP 154/68
--- NOTE | 2020-04-21 08:26 | NUR ---
AM MEDS GIVEN AT THIS TIME. ALSO GAVE 2MG OF MORPHINE FOR PAIN LEVEL OF 8/10. PT IN BED, EATING BREAKFAST, DENIES ANY OTHER NEEDS AT THIS TIME. CALL LIGHT IN REACH, NAD NOTED, WILL CONTINUE TO MONITOR.
[2020-04-21] MEDS ORDERED: LISINOPRIL5 MG PO (10:23)
[2020-04-21] MEDS ORDERED: LIPITOR20 MG PO (10:23)
--- NOTE | 2020-04-21 13:04 | NUR ---
PROVIDED VERBALA AND WRITTEN DISCHARGE TEACHING TO PT, WHO VERBALIZED UNDERSTANDING REGARDING TEACHING. D/C LT HAND IV WITH CATHETET TIP INTACT. HEART MONITOR REMOVED AND TAKEN TO ROVING COURT REPORTER.
--- NOTE | 2020-04-21 13:46 | NUR ---
PT LEFT UNIT VIA WHEELCHAIR, WITH ALL BELONGINGS.
== END 2020-04-21 13:46 | disposition home or self-care (01) | DRG 313 ==
LOC: D.ER 22:54 → OBSVTIME 04-19 02:28 → D.M2 04-19 02:28
PROVIDERS: Family Medicine; ADMIT Family Medicine; ATTEND Family Medicine
DX: R07.89 Other chest pain (principal); F17.213 Nicotine dependence, cigarettes, with withdrawal; F17.203 Nicotine dependence unspecified, with withdrawal; I25.119 Atherosclerotic heart disease of native coronary artery with unspecified angina pectoris; D50.9 Iron deficiency anemia, unspecified; I11.0 Hypertensive heart disease with heart failure; I50.9 Heart failure, unspecified; J44.9 Chronic obstructive pulmonary disease, unspecified